=== PATIENT | male | born 1950 | race Caucasian/White ===

== ENCOUNTER 2016-10-14 16:44 | Emergency (ER) | payer OTHER ==
[~2016-10-14] VITALS: Ht 162.6 cm; Wt 52.0 kg
[~2016-10-14 16:44] MED LIST: DILT180C56 PO; HYDR-3535 PO; RIVA20 PO
[2016-10-14 16:45] VITALS: BP 137/66; PULSE 61; RESP 16; TEMP 99.4; O2SAT 98
== END 2016-10-14 17:07 | disposition left against medical advice (07) ==
LOC: NED 16:44
DX: R55 Syncope and collapse (principal); W19.XXXA Unspecified fall, initial encounter; Z53.21 Procedure and treatment not carried out due to patient leaving prior to being seen by health care provider
CPT/HCPCS: 99281

== ENCOUNTER 2016-10-22 11:01 | Inpatient (IN) | payer OTHER, MEDICARE ==
[~2016-10-22] VITALS: Ht 162.6 cm; Wt 49.7 kg
[2016-10-22 11:08] VITALS: BP 140/96; PULSE 64; RESP 18; TEMP 97.8; O2SAT 98
[2016-10-22] MEDS ORDERED: HYDR-3533 PO (11:26)
--- NOTE | 2016-10-22 12:09 | PD ---
HPI Chief Complaint: Alcohol/Drug Intoxication Time Seen by Provider: 12:03 Travel History International Travel<30 days: No Contact w/Intl Traveler<30days: No Traveled to known affect area: No History of Present Illness HPI 66-year-old male with history of alcohol abuse, has been trending cut down on his alcohol use, has had at least 1 week history of tremors. He states he has had previous history of alcohol withdrawal seizures. He denies any chest pains , shortness of breath, palpitations, or any other symptoms. Modifying Factors: None Associated Signs & Symptoms: Tremors Risk Factors: Alcohol abuse, cutting back PFSH Past Medical History Asthma: Yes Blood Disorders: No Heart Rhythm Problems: Yes Cancer: No Cardiovascular Problems: Yes (atrial fib) High Cholesterol: No Chemotherapy: Yes Chest Pain: Yes Congestive Heart Failure: No Cirrhosis: Yes COPD: Yes Diabetes: No Diminished Hearing: No Diverticulitis: Yes Endocrine: No Gastrointestinal Disorders: Yes (FATTY LIVER) Genitourinary: No Hepatitis: Yes (C) Hiatal Hernia: Yes Hypertension: Yes Immune Disorder: No Implanted Vascular Access Dvce: Yes Musculoskeletal: Yes (arthritis legs) Neurologic: No Respiratory: Yes Migraines: Yes Radiation Therapy: No Seizures: Yes Sleep Apnea: Yes Thyroid Disease: No Past Surgical History Body Medical Devices: rt leg bolts and screws micaela. broken jaw Genitourinary Surgery: Yes (HEMMRHIODS) Tonsillectomy: Yes Other Surgery: Yes (hemmhorroidectomy) Social History Alcohol Use: Yes (8 BEERS DAILY) Tobacco Use: Yes (1 PPD) Substance Use: Yes (marijuana daily) Allergies-Medications (Allergen,Severity, Reaction): Coded Allergies: Contrast Media (Verified Allergy, Severe, 10/06/11) Reported Meds & Prescriptions Reported Meds & Active Scripts Active Reported Metoprolol Tartrate 25 Mg Tab 25 Mg PO DAILY Lisinopril 2.5 Mg Tab 2.5 Mg PO DAILY Lortab (Hydrocodone-Acetaminophen) 5-325 Mg Tab 1 Tab PO Q6H PRN Review of Systems Except as stated in HPI: all other systems reviewed are Neg Physical Exam Narrative GENERAL: Well-developed elderly white male patient who appears mildly anxious, tremulous, but is awake and oriented 3. SKIN: Focused skin assessment warm/dry. HEAD: Atraumatic. Normocephalic. EYES: Pupils equal and round. No scleral icterus. No injection or drainage. ENT: No nasal bleeding or discharge. Mucous membranes pink and moist. NECK: Trachea midline. No JVD. CARDIOVASCULAR: Regular rate and rhythm. No murmur appreciated. RESPIRATORY: No accessory muscle use. Clear to auscultation. Breath sounds equal bilaterally. GASTROINTESTINAL: Abdomen soft, non-tender, nondistended. Hepatic and splenic margins not palpable. MUSCULOSKELETAL: No obvious deformities. No clubbing. No cyanosis. No edema. NEUROLOGICAL: Awake and alert, tremulous. No obvious cranial nerve deficits. Motor grossly within normal limits. Normal speech. PSYCHIATRIC: Appropriate mood and affect; insight and judgment normal. Data Data Last Documented VS Vital Signs Date Time Temp Pulse Resp B/P Pulse Ox O2 Delivery O2 Flow Rate FiO2 10/22/16 11:21 73 22 99 Room Air 10/22/16 11:08 97.8 140/96 Orders Electrocardiogram (10/22/16 ) Complete Blood Count With Diff (10/22/16 12:03) Comprehensive Metabolic Panel (10/22/16 12:03) Iv Access Insert/Monitor (10/22/16 12:03) Alcohol (Ethanol) (10/22/16 12:03) Sodium Chlor 0.9% 1000 Ml Inj (Ns 1000 M (10/22/16 12:15) Lorazepam Inj (Ativan Inj) (10/22/16 12:15) Sodium Chlor 0.9% 1000 Ml Inj (Ns 1000 M (10/22/16 13:00) Labs Laboratory Tests Test 10/22/16 12:00 White Blood Count 14.8 TH/MM3 Red Blood Count 3.49 MIL/MM3 Hemoglobin 13.2 GM/DL Hematocrit 37.6 % Mean Corpuscular Volume 107.8 FL Mean Corpuscular Hemoglobin 37.8 PG Mean Corpuscular Hemoglobin 35.0 % Concent Red Cell Distribution Width 14.6 % Platelet Count 131 TH/MM3 Mean Platelet Volume 8.7 FL Neutrophils (%) (Auto) 83.2 % Lymphocytes (%) (Auto) 4.1 % Monocytes (%) (Auto) 12.3 % Eosinophils (%) (Auto) 0.2 % Basophils (%) (Auto) 0.2 % Neutrophils # (Auto) 12.3 TH/MM3 Lymphocytes # (Auto) 0.6 TH/MM3 Monocytes # (Auto) 1.8 TH/MM3 Eosinophils # (Auto) 0.0 TH/MM3 Basophils # (Auto) 0.0 TH/MM3 CBC Comment DIFF FINAL Differential Comment Sodium Level 119 MEQ/L Potassium Level 4.3 MEQ/L Chloride Level 79 MEQ/L Carbon Dioxide Level 22.8 MEQ/L Anion Gap 17 MEQ/L Blood Urea Nitrogen 14 MG/DL Creatinine 1.02 MG/DL Estimat Glomerular Filtration 74 ML/MIN Rate Random Glucose 75 MG/DL Calcium Level 9.3 MG/DL Total Bilirubin 1.0 MG/DL Aspartate Amino Transf 85 U/L (AST/SGOT) Alanine Aminotransferase 48 U/L (ALT/SGPT) Alkaline Phosphatase 66 U/L Total Protein 8.1 GM/DL Albumin 4.2 GM/DL Ethyl Alcohol Level 9 MG/DL MDM Medical Decision Making Medical Screen Exam Complete: Yes Emergency Medical Condition: Yes Medical Record Reviewed: Yes Interpretation(s) EKG shows NSR, no ST elevation or depression, and no arrhythmias. No significant T-wave inversions. Laboratory Tests Test 10/22/16 12:00 White Blood Count 14.8 TH/MM3 (4.0-11.0) Red Blood Count 3.49 MIL/MM3 (4.50-5.90) Hematocrit 37.6 % (39.0-51.0) Mean Corpuscular Volume 107.8 FL (80.0-100.0) Mean Corpuscular Hemoglobin 37.8 PG (27.0-34.0) Platelet Count 131 TH/MM3 (150-450) Neutrophils (%) (Auto) 83.2 % (16.0-70.0) Lymphocytes (%) (Auto) 4.1 % (9.0-44.0) Monocytes (%) (Auto) 12.3 % (0.0-8.0) Neutrophils # (Auto) 12.3 TH/MM3 (1.8-7.7) Lymphocytes # (Auto) 0.6 TH/MM3 (1.0-4.8) Monocytes # (Auto) 1.8 TH/MM3 (0-0.9) Sodium Level 119 MEQ/L (136-145) Chloride Level 79 MEQ/L (98-107) Anion Gap 17 MEQ/L (5-15) Estimat Glomerular Filtration 74 ML/MIN (>89) Rate Aspartate Amino Transf 85 U/L (15-37) (AST/SGOT) Ethyl Alcohol Level 9 MG/DL (0-5) Differential Diagnosis Tremorsalcohol withdrawals versus metabolic issues versus anxiety Narrative Course Patient may have had some underlying alcohol withdrawal and Ativan was given IV in the ER. However, lab work reveals significant hyponatremia. He was given several normal saline boluses in the ER my plan would be to admit the patient for further treatment of his lateral light abnormalities. Case was discussed with Dr. Nguyen for admission. Diagnosis Primary Impression: Hyponatremia Additional Impression: Alcohol withdrawal Admitting Information Admitting Physician Requests: it Jayro Membreno MD Oct 22, 2016 12:08
[2016-10-22] MEDS ORDERED: LORazepam 2 MG/ML VIAL IV PUSH ONE (12:15)
[2016-10-22] MEDS ORDERED: SODIUM CHLOR 0.9% 1000 ML INJ 1,000 ML IV ONE ×2 (12:15→13:00)
[2016-10-22 12:24] LABS: AUTOMATED NEUTROPHIL # 12.3 TH/MM3 (1.8-7.7); BASOPHIL % 0.2 % (0.0-2.0); EOSINOPHIL % 0.2 % (0.0-4.0); HEMATOCRIT 37.6 % (39.0-51.0); HEMO FLAGS DIFF FINAL; LYMPH % 4.1 % (9.0-44.0); LYMPHOCYTE # 0.6 TH/MM3 (1.0-4.8); MEAN CELL VOLUME 107.8 FL (80.0-100.0); MEAN CORPUSCULAR HEMOGLOBIN 37.8 PG (27.0-34.0); MONO % 12.3 % (0.0-8.0); NEUT % 83.2 % (16.0-70.0); PLATELET COUNT 131 TH/MM3 (150-450); RED BLOOD COUNT 3.49 MIL/MM3 (4.50-5.90); RED CELL DISTRIBUTION WIDTH 14.6 % (11.6-17.2); WHITE BLOOD COUNT 14.8 TH/MM3 (4.0-11.0)
[2016-10-22 12:49] LABS: ALKALINE PHOSPHATASE 66 U/L (45-117); ALT (GPT) 48 U/L (12-78); ANION GAP 17 MEQ/L (5-15); AST (GOT) 85 U/L (15-37); BICARBONATE 22.8 MEQ/L (21.0-32.0); BLOOD UREA NITROGEN 14 MG/DL (7-18); CHLORIDE 79 MEQ/L (98-107); GLOMERULAR FILTRATION RATE 74 ML/MIN (>89); POTASSIUM 4.3 MEQ/L (3.5-5.1)
[2016-10-22 12:51] LABS: SODIUM (NA) 119 MEQ/L (136-145)
[2016-10-22] MEDS ORDERED: METO25TA3 PO (13:26)
[2016-10-22] MEDS ORDERED: LISI2.5T3 PO (13:26)
[2016-10-22] MEDS ORDERED: CALCIUM CARBONATE 500 MG CHEWABLE TAB CHEW PRN (13:45)
[2016-10-22] MEDS ORDERED: ACETAMINOPHEN 325 MG TAB PO PRN (13:45)
[2016-10-22] MEDS ORDERED: ALUMINUM/MAGNESIUM/SIMETH 30 ML CUP PO PRN (13:45)
[2016-10-22] MEDS ORDERED: MAGNESIUM HYDROXIDE SUSP 30 ML CUP PO PRN (13:45)
[2016-10-22] MEDS ORDERED: DOCUSATE SODIUM 100 MG CAP PO PRN (13:45)
[2016-10-22] MEDS ORDERED: FLUMAZENIL 0.5 MG/5 ML VIAL IV PUSH PRN (13:45)
[2016-10-22] MEDS ORDERED: LORazepam 1 MG TAB PO PRN (13:45)
[2016-10-22] MEDS ORDERED: ONDANSETRON HCL 4 MG/2 ML VIAL IV PRN (13:45)
[2016-10-22] MEDS ORDERED: LORazepam 2 MG TAB PO PRN (13:45)
[2016-10-22] MEDS ORDERED: PILL SPLITTER OTHER PRN (14:00)
[2016-10-22] MEDS ORDERED: ACETAMINOPHEN/HYDROcodone 325 MG/5 MG TAB PO PRN (14:00)
[2016-10-22] MEDS ORDERED: cloNIDine HCL 0.1 MG TAB PO PRN (14:00)
[2016-10-22 14:24] LABS: BLOOD, URINE NEG (NEG); COMMENT (UR) CULT NOT INDICATED; CULTURE IF INDICATED CULT NOT INDICATED; GLUCOSE,URINE NEG (NEG); KETONE, URINE 40 mg/dL (NEG); MUCUS URINE FEW /lpf (OCC); NITRITE,URINE NEG (NEG); SQUAMOUS EPITHELIAL CELL URINE <1 /hpf (0-5); URINE COLOR LIGHT-YELLOW (YELLW/STRAW)
--- NOTE | 2016-10-22 14:31 | RADRPT ---
EXAM DATE/TIME: 10/22/2016 13:51 [place] COMPARISON: No previous studies available for comparison. INDICATIONS : C/o productive cough/congestion x 2 weeks. Pt states he is also having mid sternal chest pains. Pt sm okes 1ppd. MEDICAL HISTORY : None. SURGICAL HISTORY : Hernia ENCOUNTER: Initial ACUITY: 1 day PAIN SCORE: 3/10 LOCATION: Bilateral chest FINDINGS: The lungs are clear without infiltrate, nodule, or mass. There is no appreciable pleural effusion fo r technique. Heart and mediastinum are unremarkable. CONCLUSION: No acute cardiopulmonary disease. Josh Henderson MD on October 22, 2016 at 14:29 Board Certified Radiologist. This report was verified electronically.
[2016-10-22 15:41] VITALS: BP 139/65; PULSE 81; RESP 23; O2SAT 99
[2016-10-22] MEDS: LORazepam 2 MG/ML VIAL IV PUSH PRN ×5 (15:49→23:36)
[2016-10-22] MEDS: THIAMINE INJ 100 MG in SODIUM CHLORIDE 0.9% INJ 100 ML IV SCH (15:49)
[2016-10-22] MEDS: SODIUM CHLOR 0.9% 1000 ML INJ 1,000 ML IV SCH ×2 (15:50→21:39)
[2016-10-22] MEDS: METOPROLOL TARTRATE 25 MG TAB PO SCH (15:51)
[2016-10-22] MEDS: MAGNESIUM SULFATE 1 GM PREMIX 100 ML IV SCH ×2 (15:51→16:35)
[2016-10-22] MEDS: HALOPERIDOL LACTATE 5 MG/ML AMP IM PRN (16:44)
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
[2016-10-22] MEDS ORDERED: chlordiazePOXIDE 25 MG CAP PO PRN (18:15)
[2016-10-22 21:00] VITALS: BP 135/68; PULSE 82; RESP 30; TEMP 99.8; O2SAT 95
[2016-10-22 21:52] VITALS: PULSE 96
[2016-10-22 22:00] VITALS: BP 142/63; PULSE 88; RESP 28; O2SAT 94
[2016-10-22] MEDS ORDERED: CHLORHEXIDINE GLUCONATE 2 % 1 PACK (2 CLOTHS)(extra cloths) TOPICAL PRN (23:15)
[2016-10-22 23:53] LABS: BICARBONATE 21.9 MEQ/L (21.0-32.0)
[2016-10-23] VITALS (32 sets, daily range): BP systolic 111–201; BP diastolic 50–104; PULSE 64–103; RESP 17–39; TEMP 97.9–99.5; O2SAT 9–100
[2016-10-23] MEDS ORDERED: SODIUM CHLOR 0.45% 1000 ML INJ 1,000 ML IV SCH
[2016-10-23] MEDS: LORazepam 2 MG/ML VIAL IV PUSH PRN ×5 (00:50→19:26)
[2016-10-23] MEDS: CHLORHEXIDINE GLUCONATE 2 % 1 PACK (2 CLOTHS)(taper/protocol) TOPICAL SCH (04:00)
[2016-10-23] MEDS: HALOPERIDOL LACTATE 5 MG/ML AMP IM PRN ×2 (04:36→20:31)
[2016-10-23 04:56] LABS: EOSINOPHIL # 0.1 TH/MM3 (0-0.4); HEMATOCRIT 34.2 % (39.0-51.0); NEUT % 78.5 % (16.0-70.0)
[2016-10-23 04:57] LABS: POTASSIUM 3.9 MEQ/L (3.5-5.1)
[2016-10-23 04:58] LABS: EOSINOPHIL % 0.5 % (0.0-4.0); HEMO FLAGS DIFF FINAL; LYMPH % 7.3 % (9.0-44.0); MEAN CELL VOLUME 107.9 FL (80.0-100.0); MEAN CORPUSCULAR HEMOGLOBIN 36.6 PG (27.0-34.0); MEAN CORPUSCULAR HGB CONC 33.9 % (32.0-36.0); MONO % 11.4 % (0.0-8.0); PLATELET COUNT 102 TH/MM3 (150-450); RED BLOOD COUNT 3.23 MIL/MM3 (4.50-5.90); RED CELL DISTRIBUTION WIDTH 14.1 % (11.6-17.2); WHITE BLOOD COUNT 11.7 TH/MM3 (4.0-11.0)
[2016-10-23 04:59] LABS: AUTOMATED NEUTROPHIL # 9.1 TH/MM3 (1.8-7.7); BASOPHIL # 0.3 TH/MM3 (0-0.2); BASOPHIL % 2.3 % (0.0-2.0); LYMPHOCYTE # 0.9 TH/MM3 (1.0-4.8)
[2016-10-23 05:00] LABS: BICARBONATE 22.4 MEQ/L (21.0-32.0); MAGNESIUM 2.4 MG/DL (1.5-2.5)
[2016-10-23 05:49] LABS: CKMB 5.5 NG/ML (0.5-3.6)
[2016-10-23] MEDS: METOPROLOL TARTRATE 25 MG TAB PO SCH (08:49)
[2016-10-23] MEDS: FOLIC ACID 1 MG TAB PO SCH (08:49)
[2016-10-23] MEDS: chlordiazePOXIDE 25 MG CAP PO SCH ×3 (08:50→19:44)
[2016-10-23] MEDS: LISINOPRIL 5 MG TAB PO SCH (08:50)
[2016-10-23] MEDS: HEPARIN SODIUM - SQ 10,000 UNITS/ML VIAL SQ SCH ×2 (08:50→20:32)
[2016-10-23] MEDS ORDERED: THIAMINE HCL 100 MG TAB PO SCH (09:00)
--- NOTE | 2016-10-23 12:27 | HHI.PR ---
Subjective Remarks The patient was lethargic. He was able to answer some questions but was confused about most topics. He was not sure he was in the hospital. He said that alcoholism runs in his family. He had no acute complaints. Nursing at the bedside. Objective Vitals Vital Signs Date Time Temp Pulse Resp B/P Pulse Ox O2 Delivery O2 Flow Rate FiO2 10/23/16 11:00 95 24 140/91 96 10/23/16 10:00 88 10/23/16 10:00 92 25 154/75 95 10/23/16 09:00 92 25 154/75 95 10/23/16 08:00 87 17 168/78 96 10/23/16 08:00 87 10/23/16 07:00 98.4 93 27 158/77 96 10/23/16 06:00 76 10/23/16 06:00 77 28 135/60 96 10/23/16 05:00 76 30 142/75 95 10/23/16 04:00 98.7 68 23 117/65 94 10/23/16 04:00 90 10/23/16 03:00 77 31 139/53 94 10/23/16 02:00 72 26 113/50 94 10/23/16 02:00 74 10/23/16 01:00 72 24 111/60 94 10/23/16 00:00 99.5 86 34 132/51 94 10/23/16 00:00 81 10/22/16 22:00 88 28 142/63 94 10/22/16 21:52 96 10/22/16 21:00 99.8 82 30 135/68 95 10/22/16 15:41 81 23 139/65 99 Room Air I/O 10/22/16 10/22/16 10/22/16 10/23/16 10/23/16 10/23/16 07:00 15:00 23:00 07:00 15:00 23:00 Intake Total 560 ml Output Total 750 ml Balance -190 ml Intake Oral 0 ml IV Total 560 ml Output Urine Total 750 ml # Bowel Movements 0 Result Diagram: 10/23/16 0435 10/23/16 0435 Imaging Last Impressions Chest X-Ray 10/22/16 0000 Signed Impressions: Service Date/Time: Saturday, October 22, 2016 13:51 - CONCLUSION: No acute cardiopulmonary disease. KYanelis Henderson MD Objective Remarks GENERAL: Alert, not in distress. SKIN: No rashes, ecchymoses or lesions. Warm and dry. HEAD: Atraumatic. Normocephalic. No temporal or scalp tenderness. EYES: Pupils equal round and reactive. Bilateral drainage noted. ENT: Nose without bleeding, purulent drainage or septal hematoma. Airway patent. NECK: Trachea midline. No lymphadenopathy. Supple, nontender, no meningeal signs. CARDIOVASCULAR: Regular rate and rhythm without murmurs, gallops, or rubs. No JVD. RESPIRATORY: Moderate air entry. No wheezing, crackles noted. GASTROINTESTINAL: Abdomen soft, non-tender, nondistended. No guarding. MUSCULOSKELETAL: Extremities without clubbing, cyanosis, or edema. NEUROLOGICAL: Awake and alert. No focal neurological deficits. Confused. Medications and IVs Current Medications Medications (Trade) Dose Ordered Sig/[place]elle Route Start Time Stop Time Status Last Admin (Folate) 1 mg DAILY PO 10/23/16 09:00 10/28/16 08:59 10/23/16 08:49 (Romazicon Inj) 0.2 mg Q1M PRN IV PUSH 10/22/16 13:45 (Ativan) 1 mg Q4H PRN PO 10/22/16 13:45 (Ativan Inj) 1 mg Q4H PRN IV PUSH 10/22/16 13:45 10/22/16 15:49 (Ativan) 2 mg Q2H PRN PO 10/22/16 13:45 (Ativan Inj) 2 mg Q2H PRN IV PUSH 10/22/16 13:45 (Ativan Inj) 2 mg Q1H PRN IV PUSH 10/22/16 13:45 10/22/16 22:29 (Ativan Inj) 2 mg Q15M PRN IV PUSH 10/22/16 13:45 10/23/16 05:53 (Haldol Inj) 2 mg Q15M PRN IM 10/22/16 13:45 10/23/16 04:36 (Tylenol) 650 mg Q4H PRN PO 10/22/16 13:45 (Zofran Inj) 4 mg Q6H PRN IV 10/22/16 13:45 (Colace) 100 mg BID PRN PO 10/22/16 13:45 (Milk Of Magnesia Liq) 30 ml DAILY PRN PO 10/22/16 13:45 (Mag-Al Plus Susp Liq) 30 ml Q6H PRN PO 10/22/16 13:45 (Tums Chew) 1,000 mg TID PRN CHEW 10/22/16 13:45 (Lopressor) 25 mg DAILY PO 10/22/16 14:00 10/23/16 08:49 (Prinivil) 2.5 mg DAILY PO 10/23/16 09:00 10/23/16 08:50 (Vasotec Inj) 1.25 mg Q6H PRN IV 10/22/16 14:00 (Catapres) 0.1 mg Q6H PRN PO 10/22/16 14:00 (Pill Splitter) 1 ea UNSCH PRN OTHER 10/22/16 14:00 Thiamine HCl 100 mg 100 mg DAILY PO 10/25/16 09:00 (Thiamine Inj/NS Inj) 101 ml @ 101 mls/hr Q24H IV 10/22/16 15:00 10/24/16 15:59 10/22/16 15:49 ([place] 5-325 Mg) 1 tab Q6H PRN PO 10/22/16 14:45 Miscellaneous Information Patient in critical care unit? Ass... [id number] .XX 10/22/16 23:15 10/22/16 23:15 (Chlorhexidine 2% Cloth) 3 pack DAILY@04 TOPICAL 10/23/16 04:00 10/27/16 04:01 10/23/16 04:00 (Chlorhexidine 2% Cloth) 3 pack UNSCH PRN TOPICAL 10/22/16 23:15 10/27/16 23:03 (Librium) 50 mg Q6H PO 10/23/16 08:00 10/26/16 07:59 10/23/16 08:50 Heparin Sodium (Porcine) 5000 units 5,000 units Q12HR SQ 10/23/16 09:00 10/23/16 08:50 (D5W 1000 ml Inj) 1,000 ml @ 125 mls/hr Q8H IV 10/23/16 12:15 UNV A/P Problem List: (1) Alcohol withdrawal delirium ICD Code: F10.231 Status: Acute (2) Hyponatremia ICD Code: E87.1 Status: Acute (3) CAD (coronary artery disease) ICD Code: I25.10 Status: Acute Assessment and Plan Alcohol withdrawal Mr. To is a 66 year old male with a history of snf alcohol abuse who presented to the ED 3-4 days after he stopping alcohol abuse with nausea vomiting and mild fever. Patient had disorganized thoughts as well as weakness which prompted his ex-girlfriend to bring him to the hospital. Later in the day on 10/22/2016, patient became more agitated and started hallucinating. Patient was given a dose of Haloperidol at the [facility]. - Continue CIWA protocol. - Thiamine IV X 3 days then PO; Folic acid 1mg Qday. - Librium 50mg Q8hrs X 3 days. Hold for sedation. - alcohol cessation instruction. Severe Hyponatremia Na 119 on admission. Patient was started on NS and sodium level is currently 136. - change fluids to D5W and follow BMP closely. - neuro checks. Hypertension HTN exacerbated by withdrawal. - treatment as above. - continue metoprolol and lisinopril. CAD S/p 2 stents two years ago. - continue home meds. PPx: Heparin SQ. Discharge Planning Awaiting clinical improvement. Himanshu Crowell DO Oct 23, 2016 12:27
[2016-10-23] MEDS: DEXTROSE 5% IN WATE 1000ML INJ 1,000 ML IV SCH ×2 (13:51→18:57)
--- NOTE | 2016-10-23 14:11 | EKG ---
Date Performed: 10/22/2016 Time Performed: 11:22:34 PTAGE: 66 years EKG: Sinus rhythm WITH SHORT WA INTERVAL BORDERLINE ECG INTERPRETATION BASED ON A DEFAULT AGE OF 40 YEARS Compared to prior tracing no significant change PREVIOUS TRACING : 04/21/2014 07.32 DOCTOR: Prabhu Cerda Interpretating Date/Time 10/23/2016 14:06:06
[2016-10-23 15:43] LABS: POTASSIUM 3.2 MEQ/L (3.5-5.1)
[2016-10-23 15:47] LABS: BICARBONATE 20.7 MEQ/L (21.0-32.0)
[2016-10-23] MEDS: THIAMINE INJ 100 MG in SODIUM CHLORIDE 0.9% INJ 100 ML IV SCH (16:56)
[2016-10-23 20:11] LABS: POTASSIUM 3.4 MEQ/L (3.5-5.1)
[2016-10-23] MEDS: ENALAPRILAT 1.25 MG/ML VIAL IV PRN (20:32)
[2016-10-23] MEDS ORDERED: SODIUM CHLOR 0.9% 1000 ML INJ 1,000 ML IV SCH (21:45)
[2016-10-23] MEDS ORDERED: POTASSIUM CHLOR 20 MEQ PREMIX 100 ML IV ONE (22:00)
[2016-10-24] VITALS (30 sets, daily range): BP systolic 102–199; BP diastolic 50–111; PULSE 62–94; RESP 22–43; TEMP 97.8–99; O2SAT 96–100
[2016-10-24] MEDS: LORazepam 2 MG/ML VIAL IV PUSH PRN ×4 (01:00→19:13)
[2016-10-24] MEDS: chlordiazePOXIDE 25 MG CAP PO SCH ×2 (01:01→09:30)
[2016-10-24] MEDS: CHLORHEXIDINE GLUCONATE 2 % 1 PACK (2 CLOTHS)(taper/protocol) TOPICAL SCH (04:00)
[2016-10-24 05:21] LABS: AUTOMATED NEUTROPHIL # 6.4 TH/MM3 (1.8-7.7); BASOPHIL % 0.3 % (0.0-2.0); EOSINOPHIL # 0.1 TH/MM3 (0-0.4); EOSINOPHIL % 1.5 % (0.0-4.0); HEMATOCRIT 35.8 % (39.0-51.0); HEMO FLAGS DIFF FINAL; LYMPH % 9.8 % (9.0-44.0); LYMPHOCYTE # 0.8 TH/MM3 (1.0-4.8); MEAN CORPUSCULAR HEMOGLOBIN 36.1 PG (27.0-34.0); MEAN CORPUSCULAR HGB CONC 33.1 % (32.0-36.0); MONO % 12.5 % (0.0-8.0); NEUT % 75.9 % (16.0-70.0); PLATELET COUNT 109 TH/MM3 (150-450); RED BLOOD COUNT 3.28 MIL/MM3 (4.50-5.90); RED CELL DISTRIBUTION WIDTH 13.9 % (11.6-17.2); WHITE BLOOD COUNT 8.3 TH/MM3 (4.0-11.0)
[2016-10-24 05:35] LABS: BICARBONATE 24.5 MEQ/L (21.0-32.0)
[2016-10-24] MEDS: ENALAPRILAT 1.25 MG/ML VIAL IV PRN (05:44)
[2016-10-24 05:57] LABS: POTASSIUM 2.9 MEQ/L (3.5-5.1)
[2016-10-24] MEDS ORDERED: POTASSIUM CHLORIDE 20 MEQ CONTROLLED RELEASE TAB PO ONE (06:15)
[2016-10-24] MEDS: POTASSIUM CHLOR 20 MEQ PREMIX 100 ML IV SCH ×2 (06:30→09:00)
[2016-10-24] MEDS: LISINOPRIL 5 MG TAB PO SCH (09:28)
[2016-10-24] MEDS: FOLIC ACID 1 MG TAB PO SCH (09:28)
[2016-10-24] MEDS: METOPROLOL TARTRATE 25 MG TAB PO SCH (09:28)
[2016-10-24] MEDS: HEPARIN SODIUM - SQ 10,000 UNITS/ML VIAL SQ SCH ×2 (09:30→20:37)
--- NOTE | 2016-10-24 13:26 | HHI.PR ---
Subjective Remarks The pt was lethargic. His nurse said he received 2 mg of IV Ativan. No acute concerns at this time. He was able to eat breakfast. Has been agitated in the morning. Objective Vitals Vital Signs Date Time Temp Pulse Resp B/P Pulse Ox O2 Delivery O2 Flow Rate FiO2 10/24/16 13:00 89 25 159/80 98 10/24/16 12:00 78 10/24/16 12:00 99.0 80 42 135/65 100 10/24/16 11:00 68 37 116/82 100 10/24/16 10:00 78 32 160/76 100 10/24/16 10:00 88 10/24/16 09:00 98.3 82 151/79 10/24/16 08:00 90 39 153/68 98 10/24/16 08:00 90 10/24/16 07:00 89 30 161/84 99 10/24/16 06:16 88 33 191/92 100 10/24/16 06:00 88 10/24/16 05:20 90 36 199/95 100 10/24/16 04:18 62 27 119/63 100 10/24/16 04:00 92 10/24/16 03:18 64 25 102/50 98 10/24/16 02:18 66 27 109/54 97 10/24/16 02:00 93 10/24/16 01:00 80 34 141/68 100 10/24/16 00:26 76 34 141/68 100 10/24/16 00:18 97.8 80 35 168/111 100 10/24/16 00:00 86 10/23/16 23:18 64 28 145/67 100 10/23/16 22:22 100 Nasal Cannula 2.00 10/23/16 22:19 80 36 149/68 100 10/23/16 22:18 83 34 194/83 100 10/23/16 22:00 83 10/23/16 21:18 74 36 135/75 83 10/23/16 20:33 90 34 174/86 10/23/16 20:30 80 34 200/85 10/23/16 20:27 82 39 201/104 10/23/16 20:18 97.9 84 30 180/80 10/23/16 20:00 83 10/23/16 19:28 84 36 171/64 10/23/16 19:17 82 39 172/74 10/23/16 18:00 69 10/23/16 18:00 78 27 157/78 96 10/23/16 17:00 75 28 154/73 96 10/23/16 16:00 80 29 148/79 96 10/23/16 16:00 82 10/23/16 16:00 98.3 91 24 168/82 95 10/23/16 15:00 103 27 161/81 96 10/23/16 14:00 95 28 154/87 95 10/23/16 14:00 95 I/O 10/23/16 10/23/16 10/23/16 10/24/16 10/24/16 10/24/16 07:00 15:00 23:00 07:00 15:00 23:00 Intake Total 560 ml 770 ml 590 ml 0 ml Output Total 750 ml 1100 ml 350 ml 800 ml Balance -190 ml -330 ml 240 ml -800 ml Intake Oral 0 ml 20 ml IV Total 560 ml 750 ml 590 ml 0 ml Output Urine Total 750 ml 1100 ml 350 ml 800 ml # Bowel Movements 0 0 Result Diagram: 10/24/16 0505 10/24/16 1200 Imaging Last Impressions Chest X-Ray 10/22/16 0000 Signed Impressions: Service Date/Time: Saturday, October 22, 2016 13:51 - CONCLUSION: No acute cardiopulmonary disease. Josh Henderson MD Objective Remarks GENERAL: Lethargic. SKIN: No rashes, ecchymoses or lesions. Warm and dry. HEAD: Atraumatic. Normocephalic. No temporal or scalp tenderness. EYES: Pupils equal round and reactive. Bilateral drainage noted. ENT: Nose without bleeding, purulent drainage or septal hematoma. Airway patent. NECK: Trachea midline. No lymphadenopathy. Supple, nontender, no meningeal signs. CARDIOVASCULAR: Regular rate and rhythm without murmurs, gallops, or rubs. No JVD. RESPIRATORY: Moderate rhonchi, mild wheezing. GASTROINTESTINAL: Abdomen soft, non-tender, nondistended. No guarding. MUSCULOSKELETAL: Extremities without clubbing, cyanosis, or edema. NEUROLOGICAL: Lethargic. No focal neurological deficits. Confused. Medications and IVs Current Medications Medications (Trade) Dose Ordered Sig/Lavelle Route Start Time Stop Time Status Last Admin (Folate) 1 mg DAILY PO 10/23/16 09:00 10/28/16 08:59 10/24/16 09:28 (Romazicon Inj) 0.2 mg Q1M PRN IV PUSH 10/22/16 13:45 (Ativan) 1 mg Q4H PRN PO 10/22/16 13:45 (Ativan Inj) 1 mg Q4H PRN IV PUSH 10/22/16 13:45 10/22/16 15:49 (Ativan) 2 mg Q2H PRN PO 10/22/16 13:45 (Ativan Inj) 2 mg Q2H PRN IV PUSH 10/22/16 13:45 10/24/16 09:30 (Ativan Inj) 2 mg Q1H PRN IV PUSH 10/22/16 13:45 10/24/16 01:00 (Ativan Inj) 2 mg Q15M PRN IV PUSH 10/22/16 13:45 10/23/16 05:53 (Haldol Inj) 2 mg Q15M PRN IM 10/22/16 13:45 10/23/16 20:31 (Tylenol) 650 mg Q4H PRN PO 10/22/16 13:45 (Zofran Inj) 4 mg Q6H PRN IV 10/22/16 13:45 (Colace) 100 mg BID PRN PO 10/22/16 13:45 (Milk Of Magnesia Liq) 30 ml DAILY PRN PO 10/22/16 13:45 (Mag-Al Plus Susp Liq) 30 ml Q6H PRN PO 10/22/16 13:45 (Tums Chew) 1,000 mg TID PRN CHEW 10/22/16 13:45 (Lopressor) 25 mg DAILY PO 10/22/16 14:00 10/24/16 09:28 (Prinivil) 2.5 mg DAILY PO 10/23/16 09:00 10/24/16 09:28 (Vasotec Inj) 1.25 mg Q6H PRN IV 10/22/16 14:00 10/24/16 05:44 (Catapres) 0.1 mg Q6H PRN PO 10/22/16 14:00 (Pill Splitter) 1 ea UNSCH PRN OTHER 10/22/16 14:00 Thiamine HCl 100 mg 100 mg DAILY PO 10/25/16 09:00 (Thiamine Inj/NS Inj) 101 ml @ 101 mls/hr Q24H IV 10/22/16 15:00 10/24/16 15:59 10/23/16 16:56 ([place] 5-325 Mg) 1 tab Q6H PRN PO 10/22/16 14:45 Miscellaneous Information Patient in critical care unit? Ass... Q361D .XX 10/22/16 23:15 10/22/16 23:15 (Chlorhexidine 2% Cloth) 3 pack DAILY@04 TOPICAL 10/23/16 04:00 10/27/16 04:01 10/24/16 04:00 (Chlorhexidine 2% Cloth) 3 pack UNSCH PRN TOPICAL 10/22/16 23:15 10/27/16 23:03 (Librium) 50 mg Q6H PO 10/23/16 08:00 10/26/16 07:59 10/24/16 09:30 (Heparin Inj) 5,000 units Q12HR SQ 10/23/16 09:00 10/24/16 09:30 A/P Problem List: (1) Alcohol withdrawal delirium ICD Code: F10.231 Status: Acute (2) Hyponatremia ICD Code: E87.1 Status: Acute (3) CAD (coronary artery disease) ICD Code: I25.10 Status: Acute Assessment and Plan Alcohol withdrawal Mr. 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 Patient had disorganized thoughts as well as weakness which prompted his ex-girlfriend to bring him to the hospital. Later in the day on 10/22/2016, patient became more agitated and started hallucinating. Patient was given a dose of Haloperidol at the main hospital. - Continue CIWA protocol. - Thiamine IV X 3 days then PO; Folic acid 1mg Qday. - alcohol cessation instruction. Acute metabolic encephalopathy Likely s/t benzos on top of alcohol withdrawal. - decrease benzos if possible. - start Seroquel for agitation. Haldol if needed. QTc is not elevated. - PT. - diet per ST. Severe Hyponatremia Na 119 on admission. Patient was started on NS and sodium level increased to 136. - neuro checks. - follow BMP. - consider repeat head imaging if mental status does not improve. Hypertension HTN exacerbated by withdrawal. - treatment as above. - continue metoprolol and lisinopril. CAD S/p 2 stents two years ago. - continue home meds. PPx: Heparin SQ. Discharge Planning Awaiting clinical improvement. Himanshu Crowell DO Oct 24, 2016 13:26
[2016-10-24 13:30] LABS: POTASSIUM 4.2 MEQ/L (3.5-5.1)
[2016-10-24 13:35] LABS: BICARBONATE 19.7 MEQ/L (21.0-32.0)
[2016-10-24] MEDS ORDERED: RESP: ALBUTEROL 2.5 MG/IPRATROPIUM 0.5 MG NEB (PRN) NEB (14:15)
[2016-10-24] MEDS ORDERED: DEXTROSE 5% IN WATE 1000ML INJ 1,000 ML IV SCH (14:15)
[2016-10-24] MEDS: THIAMINE INJ 100 MG in SODIUM CHLORIDE 0.9% INJ 100 ML IV SCH (15:34)
[2016-10-24] MEDS: QUEtiapine FUMARATE 25 MG TAB PO SCH (20:37)
[2016-10-25] VITALS (31 sets, daily range): BP systolic 91–183; BP diastolic 59–96; PULSE 68–114; RESP 26–54; TEMP 97.9–99; O2SAT 94–100
[2016-10-25] MEDS: LORazepam 2 MG/ML VIAL IV PUSH PRN (01:53)
[2016-10-25] MEDS: CHLORHEXIDINE GLUCONATE 2 % 1 PACK (2 CLOTHS)(taper/protocol) TOPICAL SCH (04:00)
[2016-10-25 06:07] LABS: HEMATOCRIT 34.6 % (39.0-51.0); MEAN CELL VOLUME 108.6 FL (80.0-100.0); MEAN CORPUSCULAR HEMOGLOBIN 37.3 PG (27.0-34.0); MEAN CORPUSCULAR HGB CONC 34.3 % (32.0-36.0); PLATELET COUNT 122 TH/MM3 (150-450); RED BLOOD COUNT 3.18 MIL/MM3 (4.50-5.90); RED CELL DISTRIBUTION WIDTH 13.8 % (11.6-17.2); REVIEW FLAG FINAL; WHITE BLOOD COUNT 9.7 TH/MM3 (4.0-11.0)
[2016-10-25 06:13] LABS: POTASSIUM 3.5 MEQ/L (3.5-5.1)
[2016-10-25 06:16] LABS: BICARBONATE 21.9 MEQ/L (21.0-32.0)
[2016-10-25 06:22] LABS: MAGNESIUM 1.5 MG/DL (1.5-2.5)
[2016-10-25] MEDS: FOLIC ACID 1 MG TAB PO SCH (09:00)
[2016-10-25] MEDS: METOPROLOL TARTRATE 25 MG TAB PO SCH (09:00)
[2016-10-25] MEDS: QUEtiapine FUMARATE 25 MG TAB PO SCH (09:00)
[2016-10-25] MEDS: LISINOPRIL 5 MG TAB PO SCH (09:00)
[2016-10-25] MEDS ORDERED: THIAMINE HCL 100 MG TAB PO SCH (09:00)
--- NOTE | 2016-10-25 11:12 | HHI.PR ---
Subjective Remarks The patient was lethargic. He was unable to work with physical therapy, who was at the bedside. He was mumbling certain words but not making much sense. He was responding to commands though. Discussed with nursing. Objective Vitals Vital Signs Date Time Temp Pulse Resp B/P Pulse Ox O2 Delivery O2 Flow Rate FiO2 10/25/16 08:51 96 Nasal Cannula 2.00 10/25/16 07:36 71 37 180/96 97 10/25/16 06:00 96 45 169/84 97 10/25/16 06:00 96 10/25/16 05:00 96 51 149/75 96 10/25/16 04:00 98.8 104 39 158/69 96 10/25/16 04:00 104 10/25/16 03:00 100 10/25/16 03:00 100 54 148/78 96 10/25/16 02:00 98 10/25/16 02:00 98 32 159/79 97 10/25/16 01:00 88 10/25/16 01:00 88 43 147/65 97 10/25/16 00:00 98.1 94 34 158/84 96 10/25/16 00:00 94 10/24/16 23:00 94 10/24/16 23:00 94 43 158/80 100 10/24/16 22:00 92 38 156/77 100 10/24/16 22:00 91 10/24/16 21:00 92 42 174/82 100 10/24/16 20:26 96 Nasal Cannula 2.00 10/24/16 20:00 86 10/24/16 20:00 78 37 126/71 97 10/24/16 19:00 98.0 84 41 149/83 98 10/24/16 18:00 88 10/24/16 18:00 85 25 155/79 97 10/24/16 17:00 78 23 160/84 98 10/24/16 16:00 86 10/24/16 16:00 86 22 140/70 96 10/24/16 15:00 80 26 160/91 97 10/24/16 14:00 80 39 160/84 100 10/24/16 14:00 80 10/24/16 13:00 89 25 159/80 98 10/24/16 12:00 78 10/24/16 12:00 99.0 80 42 135/65 100 I/O 10/24/16 10/24/16 10/24/16 10/25/16 10/25/16 10/25/16 07:00 15:00 23:00 07:00 15:00 23:00 Intake Total 0 ml 200 ml 760 ml 560 ml Output Total 800 ml 550 ml 352 ml 350 ml Balance -800 ml -350 ml 408 ml 210 ml IV Total 0 ml 200 ml 760 ml 560 ml Output Urine Total 800 ml 550 ml 352 ml 350 ml # Bowel Movements 1 1 Result Diagram: 10/25/16 0545 10/25/16 0545 Imaging Last Impressions Chest X-Ray 10/22/16 0000 Signed Impressions: Service Date/Time: Saturday, October 22, 2016 13:51 - CONCLUSION: No acute cardiopulmonary disease. Josh Henderson MD Objective Remarks GENERAL: Lethargic. SKIN: No rashes, ecchymoses or lesions. Warm and dry. HEAD: Atraumatic. Normocephalic. No temporal or scalp tenderness. EYES: Pupils equal round and reactive. Bilateral drainage noted. ENT: Nose without bleeding, purulent drainage or septal hematoma. Airway patent. NECK: Trachea midline. No lymphadenopathy. Supple, nontender, no meningeal signs. CARDIOVASCULAR: Regular rate and rhythm without murmurs, gallops, or rubs. No JVD. RESPIRATORY: Moderate rhonchi, mild wheezing, tachypnea noted. GASTROINTESTINAL: Abdomen soft, non-tender, nondistended. No guarding. MUSCULOSKELETAL: Extremities without clubbing, cyanosis, or edema. NEUROLOGICAL: Lethargic. No focal neurological deficits. Confused. PSYCH: Withdrawn. Medications and IVs Current Medications Medications (Trade) Dose Ordered Sig/Lavelle Route Start Time Stop Time Status Last Admin (Folate) 1 mg DAILY PO 10/23/16 09:00 10/28/16 08:59 10/24/16 09:28 (Romazicon Inj) 0.2 mg Q1M PRN IV PUSH 10/22/16 13:45 (Ativan) 1 mg Q4H PRN PO 10/22/16 13:45 (Ativan) 2 mg Q2H PRN PO 10/22/16 13:45 (Haldol Inj) 2 mg Q15M PRN IM 10/22/16 13:45 10/23/16 20:31 (Tylenol) 650 mg Q4H PRN PO 10/22/16 13:45 (Zofran Inj) 4 mg Q6H PRN IV 10/22/16 13:45 (Colace) 100 mg BID PRN PO 10/22/16 13:45 (Milk Of Magnesia Liq) 30 ml DAILY PRN PO 10/22/16 13:45 (Mag-Al Plus Susp Liq) 30 ml Q6H PRN PO 10/22/16 13:45 (Tums Chew) 1,000 mg TID PRN CHEW 10/22/16 13:45 (Lopressor) 25 mg DAILY PO 10/22/16 14:00 10/24/16 09:28 (Prinivil) 2.5 mg DAILY PO 10/23/16 09:00 10/24/16 09:28 (Vasotec Inj) 1.25 mg Q6H PRN IV 10/22/16 14:00 10/24/16 05:44 (Catapres) 0.1 mg Q6H PRN PO 10/22/16 14:00 (Pill Splitter) 1 ea UNSCH PRN OTHER 10/22/16 14:00 (Vitamin B1) 100 mg DAILY PO 10/25/16 09:00 ([place] 5-325 Mg) 1 tab Q6H PRN PO 10/22/16 14:45 Miscellaneous Information Patient in critical care unit? Ass... Q361D .XX 10/22/16 23:15 10/22/16 23:15 (Chlorhexidine 2% Cloth) 3 pack DAILY@04 TOPICAL 10/23/16 04:00 10/27/16 04:01 10/25/16 04:00 (Chlorhexidine 2% Cloth) 3 pack UNSCH PRN TOPICAL 10/22/16 23:15 10/27/16 23:03 (Heparin Inj) 5,000 units Q12HR SQ 10/23/16 09:00 10/24/16 20:37 (SEROquel) 25 mg BID PO 10/24/16 21:00 10/24/16 20:37 A/P Problem List: (1) Alcohol withdrawal delirium ICD Code: F10.231 Status: Acute (2) Hyponatremia ICD Code: E87.1 Status: Acute (3) CAD (coronary artery disease) ICD Code: I25.10 Status: Acute Assessment and Plan Alcohol withdrawal Mr. To is a 66 year old male with a history of fpc alcohol abuse who presented to the ED 3-4 days after he stopping alcohol abuse with nausea vomiting and mild fever. Patient had disorganized thoughts as well as weakness which prompted his ex-girlfriend to bring him to the hospital. Later in the day on 10/22/2016, patient became more agitated and started hallucinating. Patient was given a dose of Haloperidol at the main hospital. - Ativan as needed.. - Thiamine IV X 3 days then PO; Folic acid 1mg Qday. - alcohol cessation instruction. Acute metabolic encephalopathy Likely s/t benzos on top of alcohol withdrawal. - withhold sedating meds. - Ativan as needed for seizures. - Haldol if needed. QTc is not elevated. - PT. - diet per ST. - MRI of the brain is pending. - neuro checks. Respiratory distress The pt has tachypnea. Likely respiratory compensation for metabolic acidosis. - Check ABG and lactic acid level. - Oxygen and nebs as needed. - consult plant operator control room operator if needed. Severe Hyponatremia Na 119 on admission. Patient was started on NS and sodium level increased to 136. - neuro checks. - follow BMP. - consider repeat head imaging if mental status does not improve. Hypertension HTN exacerbated by withdrawal. - treatment as above. - continue metoprolol and lisinopril. CAD S/p 2 stents two years ago. - continue home meds. PPx: Heparin SQ. Discharge Planning Awaiting clinical improvement. Himanshu Crowell DO Oct 25, 2016 11:12
[2016-10-25] MEDS ORDERED: LORazepam 2 MG/ML VIAL IV PUSH PRN (11:30)
[2016-10-25 11:46] LABS: BLOOD GAS BASE EXCESS -1.5 mmol/L (-2-2); BLOOD GAS CARBOXYHEMOGLOBIN 1.6 % (0-4); BLOOD GAS HCO3 22 mmol/L (22-26); BLOOD GAS METHEMOGLOBIN 0.8 % (0-2); BLOOD GAS O2 HGB SATURATION 95 % (90-100); BLOOD GAS OXYGEN CONTENT 16.3 Vol % (12.0-20.0); BLOOD GAS PCO2 29 mmHg (38-42); BLOOD GAS PO2 78 mmHg (61-120); BLOOD GAS TOTAL HGB 12.2 G/DL (12.0-16.0); CRITICAL VALUE NO; LITER FLOW 1 L/M; OXYGEN DEVICE NASAL CANNULA; TEMP CORR TO 98.6
[2016-10-25 11:47] LABS: DRAW SITE LT RADIAL; NUMBER OF ARTERIAL PUNCTURES 1; STAT YES; ULNAR PULSE PRESENT
--- NOTE | 2016-10-25 11:48 | RADHPO ---
EXAM DATE/TIME: 10/25/2016 11:36 [facility] COMPARISON: CHEST SINGLE AP, October 22, 2016, 13:51. INDICATIONS : Dyspnea MEDICAL HISTORY : None. SURGICAL HISTORY : None. ENCOUNTER: Subsequent ACUITY: 4 - 6 days PAIN SCORE: Non-responsive. LOCATION: Bilateral chest FINDINGS: A single view of the chest demonstrates the lungs to be symmetrically aerated without evidence of mas s, infiltrate or effusion. The cardiomediastinal contours are unremarkable. Osseous structures are intact. CONCLUSION: Normal examination. Valdo Bell MD on October 25, 2016 at 11:46 Board Certified Radiologist. This report was verified electronically.
[2016-10-25] MEDS: HEPARIN SODIUM - SQ 10,000 UNITS/ML VIAL SQ SCH ×2 (12:14→19:36)
[2016-10-25] MEDS: MAGNESIUM SULFATE 1 GM PREMIX 100 ML IV SCH ×2 (12:14→13:25)
[2016-10-25] MEDS: DEXT 5%-NACL 0.45% 1000 ML INJ 1,000 ML IV SCH ×2 (13:25→20:02)
--- NOTE | 2016-10-25 14:15 | RADHPO ---
EXAM DATE/TIME: 10/25/2016 13:36 [facility] COMPARISON: CT BRAIN W/O CONTRAST, February 23, 2011, 9:09. INDICATIONS : Altered mental status. RADIATION DOSE: 58.25 CTDIvol (mGy) MEDICAL HISTORY : Seizures. Hypertension. Hepatitis C. SURGICAL HISTORY : Tonsillectomy. ENCOUNTER: Initial ACUITY: 1 day PAIN SCALE: Non-responsive LOCATION: Bilateral head TECHNIQUE: Multiple contiguous axial images were obtained of the head. Using automated exposure control and adj ustment of the mA and/or kV according to patient size, radiation dose was kept as low as reasonably a chievable to obtain optimal diagnostic quality images. FINDINGS: There is mild atrophy. No hemorrhage, infarct, or mass. No fractures. CONCLUSION: No significant change has occurred. Valdo Bell MD on October 25, 2016 at 14:13 Board Certified Radiologist. This report was verified electronically.
[2016-10-25] MEDS: ENALAPRILAT 1.25 MG/ML VIAL IV PRN (15:15)
[2016-10-25] MEDS ORDERED: hydrALAZINE HCL 20 MG/ML VIAL IV PUSH PRN (16:30)
--- NOTE | 2016-10-25 17:23 | RADHPO ---
EXAM DATE/TIME: 10/25/2016 16:11 [facility] COMPARISON: CHEST SINGLE AP, October 25, 2016, 11:36. INDICATIONS : Short of breath for 1 day. Current smoker. DOSE: 8.1 mCi Tc99m MAA IV 0.5 mCi Tc99m DTPA aerosol MEDICAL HISTORY : Hepatitis C. Chronic obstructive pulmonary disease. Asthma and atrail fibrillation. SURGICAL HISTORY : Inguinal hernia repair. Right leg surgery. ENCOUNTER: Initial ACUITY: 1 day PAIN SCALE: 1/10 LOCATION: Bilateral chest TECHNIQUE: Following five minutes of tidal breathing of DTPA aerosol, planar images of the lungs were performed in eight projections. The patient was then injected with MAA, and eight-view perfusion scan was perf ormed. FINDINGS: There is apparent diminished perfusion to both lower lobes on the lateral projections, however not pa rticularly segmental possibly representing artifact and there are slight degree of peripheral ventila tory defects. CONCLUSION: Possible artifactual appearance of diminished perfusion to both lower lobes and may consider CT angio graphy to further characterize. Josh Henderson MD on October 25, 2016 at 17:19 Board Certified Radiologist. This report was verified electronically.
[2016-10-25] MEDS: DEXMEDETOMIDINE INJ 200 MCG in SODIUM CHLORIDE 0.9% INJ 50 ML IV SCH ×2 (20:20→23:11)
[2016-10-25 22:06] LABS: BLOOD GAS BASE EXCESS 0.3 mmol/L (-2-2); BLOOD GAS CARBOXYHEMOGLOBIN 1.4 % (0-4); BLOOD GAS HCO3 24 mmol/L (22-26); BLOOD GAS METHEMOGLOBIN 0.9 % (0-2); BLOOD GAS O2 HGB SATURATION 94 % (90-100); BLOOD GAS PCO2 36 mmHg (38-42); BLOOD GAS PO2 75 mmHg (61-120); BLOOD GAS TOTAL HGB 12.1 G/DL (12.0-16.0); TEMP CORR TO 98.6
[2016-10-25 22:07] LABS: CRITICAL VALUE NO; DRAW SITE RT RADIAL; LITER FLOW 1 L/M; NUMBER OF ARTERIAL PUNCTURES 1; OXYGEN DEVICE NASAL CANNULA; STAT YES; ULNAR PULSE Y
[2016-10-26] VITALS (34 sets, daily range): BP systolic 82–154; BP diastolic 56–89; PULSE 62–110; RESP 11–47; TEMP 97.8–100.2; O2SAT 97–100
[2016-10-26] MEDS: CHLORHEXIDINE GLUCONATE 2 % 1 PACK (2 CLOTHS)(taper/protocol) TOPICAL SCH (04:00)
[2016-10-26 06:19] LABS: MEAN CELL VOLUME 107.4 FL (80.0-100.0); MEAN CORPUSCULAR HEMOGLOBIN 36.5 PG (27.0-34.0); PLATELET COUNT 140 TH/MM3 (150-450); RED BLOOD COUNT 3.08 MIL/MM3 (4.50-5.90); RED CELL DISTRIBUTION WIDTH 13.7 % (11.6-17.2); REVIEW FLAG FINAL; WHITE BLOOD COUNT 7.9 TH/MM3 (4.0-11.0)
[2016-10-26 06:27] LABS: POTASSIUM 3.3 MEQ/L (3.5-5.1)
[2016-10-26 06:31] LABS: BICARBONATE 23.4 MEQ/L (21.0-32.0); MAGNESIUM 1.9 MG/DL (1.5-2.5)
[2016-10-26 06:36] LABS: INDIRECT BILIRUBIN 0.6 MG/DL (0.0-0.8); TOTAL BILIRUBIN ADULT 0.8 MG/DL (0.2-1.0)
[2016-10-26] MEDS: FOLIC ACID 1 MG TAB PO SCH (09:00)
[2016-10-26 09:53] LABS: BLOOD GAS BASE EXCESS -0.1 mmol/L (-2-2); BLOOD GAS CARBOXYHEMOGLOBIN 1.4 % (0-4); BLOOD GAS HCO3 24 mmol/L (22-26); BLOOD GAS METHEMOGLOBIN 0.9 % (0-2); BLOOD GAS O2 HGB SATURATION 95 % (90-100); BLOOD GAS OXYGEN CONTENT 19.7 Vol % (12.0-20.0); BLOOD GAS PCO2 38 mmHg (38-42); BLOOD GAS PO2 83 mmHg (61-120); BLOOD GAS TOTAL HGB 14.8 G/DL (12.0-16.0); TEMP CORR TO 98.6
[2016-10-26 09:54] LABS: CRITICAL VALUE NO; DRAW SITE LT RADIAL; LITER FLOW 2 L/M; NUMBER OF ARTERIAL PUNCTURES 1; OXYGEN DEVICE NASAL CANNULA; STAT YES; ULNAR PULSE PRESENT
[2016-10-26] MEDS ORDERED: FUROSEMIDE 40 MG/4 ML VIAL IV PUSH ONE (10:00)
--- NOTE | 2016-10-26 10:12 | RADHPO ---
EXAM DATE/TIME: 10/26/2016 09:28 [facility] COMPARISON: CHEST SINGLE AP, October 25, 2016, 11:36. INDICATIONS : Shortness of breath. MEDICAL HISTORY : Chronic obstructive pulmonary disease. Hepatitis C. Asthma. SURGICAL HISTORY : Hernia repair. ENCOUNTER: Subsequent ACUITY: 4 - 6 days PAIN SCORE: Non-responsive. LOCATION: Bilateral chest FINDINGS: Single AP view of the chest. Calcified granuloma again seen in the right upper lung. The lungs are ot herwise clear. Cardiomediastinal silhouette within normal limits. No evidence of pleural effusion or pneumothorax. CONCLUSION: No acute cardiopulmonary disease identified. Jaden Corona MD on October 26, 2016 at 10:10 Board Certified Radiologist. This report was verified electronically.
[2016-10-26] MEDS: HEPARIN SODIUM - SQ 10,000 UNITS/ML VIAL SQ SCH ×2 (10:35→20:19)
[2016-10-26] MEDS: PIPERACIL-TAZO 4.5 GM PREMIX 100 ML IV SCH ×3 (10:35→22:51)
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
--- NOTE | 2016-10-26 11:14 | HHI.PR ---
Subjective Remarks The patient was lethargic but responding to questions. He stated that he wanted to go home tomorrow. He did not seem to have any acute complaints. He appeared comfortable later on, earlier he was showing signs of respiratory distress and was coughing up copious secretions. Nursing was at the bedside. Objective Vitals Vital Signs Date Time Temp Pulse Resp B/P Pulse Ox O2 Delivery O2 Flow Rate FiO2 10/26/16 08:57 100 Nasal Cannula 2.00 10/26/16 08:00 88 30 139/68 100 10/26/16 07:00 98.2 68 19 120/64 100 10/26/16 06:01 76 23 109/70 100 10/26/16 06:00 76 10/26/16 05:01 84 24 104/60 100 10/26/16 04:01 97.8 74 24 104/65 100 10/26/16 04:00 74 10/26/16 03:01 68 22 103/60 100 10/26/16 02:04 72 26 102/59 100 10/26/16 02:00 62 10/26/16 00:59 76 30 134/74 100 10/26/16 00:00 66 10/25/16 23:59 98.9 68 26 110/62 100 10/25/16 23:02 80 33 91/59 99 10/25/16 22:09 94 35 134/73 100 10/25/16 22:00 100 10/25/16 21:02 106 36 133/82 99 10/25/16 20:59 97 Nasal Cannula 1.00 10/25/16 20:02 97.9 106 42 182/82 94 10/25/16 20:00 114 10/25/16 19:02 98 36 122/71 100 10/25/16 18:02 106 32 175/80 98 10/25/16 18:00 106 10/25/16 17:03 102 27 171/76 100 10/25/16 16:01 98.6 106 42 159/82 100 10/25/16 16:00 106 10/25/16 15:01 102 31 181/95 100 10/25/16 14:00 80 10/25/16 14:00 80 30 152/77 100 10/25/16 13:00 84 39 145/73 99 10/25/16 12:00 99.0 94 35 149/73 100 10/25/16 12:00 94 I/O 10/25/16 10/25/16 10/25/16 10/26/16 10/26/16 10/26/16 07:00 15:00 23:00 07:00 15:00 23:00 Intake Total 560 ml 1458 ml 819 ml Output Total 350 ml 1550 ml Balance 210 ml -92 ml 819 ml IV Total 560 ml 1458 ml 819 ml Output Urine Total 350 ml 1550 ml # Voids 2 # Bowel Movements 0 Result Diagram: 10/26/16 0606 10/26/16 0606 Imaging Last Impressions Chest X-Ray 10/26/16 0000 Signed Impressions: Service Date/Time: Wednesday, October 26, 2016 09:28 - CONCLUSION: No acute cardiopulmonary disease identified. Jaden Corona MD Lung Scan-V Nuclear Medicine 10/25/16 0000 Signed Impressions: Service Date/Time: Tuesday, October 25, 2016 16:11 - CONCLUSION: Possible artifactual appearance of diminished perfusion to both lower lobes and may consider CT angiography to further characterize. Josh Henderson MD Head CT 10/25/16 0000 Signed Impressions: Service Date/Time: Tuesday, October 25, 2016 13:36 - CONCLUSION: No significant change has occurred. Valdo Bell MD Objective Remarks GENERAL: Lethargic. SKIN: No rashes, ecchymoses or lesions. Warm and dry. HEAD: Atraumatic. Normocephalic. No temporal or scalp tenderness. EYES: Pupils equal round and reactive. Bilateral drainage noted. ENT: Nose without bleeding, purulent drainage or septal hematoma. Airway patent. NECK: Trachea midline. No lymphadenopathy. Supple, nontender, no meningeal signs. CARDIOVASCULAR: Regular rate and rhythm without murmurs, gallops, or rubs. No JVD. RESPIRATORY: Moderate rhonchi, no wheezing. GASTROINTESTINAL: Abdomen soft, non-tender, nondistended. No guarding. MUSCULOSKELETAL: Extremities without clubbing, cyanosis, or edema. NEUROLOGICAL: Lethargic but answering some questions. No focal neurological deficits. Confused. PSYCH: Withdrawn. Medications and IVs Current Medications Medications (Trade) Dose Ordered Sig/Lavelle Route Start Time Stop Time Status Last Admin (Folate) 1 mg DAILY PO 10/23/16 09:00 10/28/16 08:59 10/24/16 09:28 (Romazicon Inj) 0.2 mg Q1M PRN IV PUSH 10/22/16 13:45 (Haldol Inj) 2 mg Q15M PRN IM 10/22/16 13:45 10/23/16 20:31 (Tylenol) 650 mg Q4H PRN PO 10/22/16 13:45 (Zofran Inj) 4 mg Q6H PRN IV 10/22/16 13:45 (Colace) 100 mg BID PRN PO 10/22/16 13:45 (Milk Of Magnesia Liq) 30 ml DAILY PRN PO 10/22/16 13:45 (Mag-Al Plus Susp Liq) 30 ml Q6H PRN PO 10/22/16 13:45 (Tums Chew) 1,000 mg TID PRN CHEW 10/22/16 13:45 (Lopressor) 25 mg DAILY PO 10/22/16 14:00 10/24/16 09:28 (Prinivil) 2.5 mg DAILY PO 10/23/16 09:00 10/24/16 09:28 (Vasotec Inj) 1.25 mg Q6H PRN IV 10/22/16 14:00 10/25/16 15:15 (Catapres) 0.1 mg Q6H PRN PO 10/22/16 14:00 (Pill Splitter) 1 ea UNSCH PRN OTHER 10/22/16 14:00 (Vitamin B1) 100 mg DAILY PO 10/25/16 09:00 ([place] 5-325 Mg) 1 tab Q6H PRN PO 10/22/16 14:45 Miscellaneous Information Patient in critical care unit? Ass... Q361D .XX 10/22/16 23:15 10/22/16 23:15 (Chlorhexidine 2% Cloth) 3 pack DAILY@04 TOPICAL 10/23/16 04:00 10/27/16 04:01 10/26/16 04:00 (Chlorhexidine 2% Cloth) 3 pack UNSCH PRN TOPICAL 10/22/16 23:15 10/27/16 23:03 (Heparin Inj) 5,000 units Q12HR SQ 10/23/16 09:00 10/26/16 10:35 (SEROquel) 25 mg BID PO 10/24/16 21:00 Hold 10/24/16 20:37 Lorazepam 2 mg 2 mg Q2H PRN IV PUSH 10/25/16 11:30 (Precedex Inj/NS Inj) 52 ml @ 0 mls/hr TITRATE IV 10/25/16 13:30 10/25/16 23:11 Hydralazine HCl 10 mg 10 mg Q4H PRN IV PUSH 10/25/16 16:30 Piperacillin Sod/ Tazobactam Sod 100 ml @ 200 mls/hr Q6H IV 10/26/16 10:00 10/26/16 10:35 (KCl 20 Meq Premix Inj) 100 ml @ 50 mls/hr Q2H IV 10/26/16 11:00 10/26/16 14:59 UNV A/P Problem List: (1) Alcohol withdrawal delirium ICD Code: F10.231 Status: Acute (2) Hyponatremia ICD Code: E87.1 Status: Acute (3) CAD (coronary artery disease) ICD Code: I25.10 Status: Acute Assessment and Plan Alcohol withdrawal Mr. To is a 66 year old male with a history of custodial alcohol abuse who presented to the ED 3-4 days after he stopping alcohol abuse with nausea vomiting and mild fever. Patient had disorganized thoughts as well as weakness which prompted his ex-girlfriend to bring him to the hospital. Later in the day on 10/22/2016, patient became more agitated and started hallucinating. Patient was given Haldol, Ativan, Librium and was started on Precedex. - hold off sedating meds and monitor neuro status. - Thiamine, folic acid. - alcohol cessation instruction. - Ativan as needed for seizures. - Seroquel or Haldol as needed for agitation. Acute metabolic encephalopathy Likely s/t benzos on top of alcohol withdrawal. Questionable component of ODS s/ t quick correction of sodium levels. Head CT unremarkable. - withhold sedating meds and monitor mental status. - Ativan as needed for seizures. - PT/ OT. - diet per ST. NPO for now. - MRI of the brain when stable. - neuro checks. Respiratory distress The pt has tachypnea. Likely respiratory compensation for metabolic acidosis. Had large amount of secretions. CXR unremarkable. V/Q scan with questionable perfusion defect in the lower lobes, may be artifactual. Pt has contrast allergy. - Oxygen and nebs as needed. - Zosyn started 10/26 for aspiration pneumonia coverage. - consult tank riveter if unable to protect airway. - consider CTA with pre-treatment for contrast allergy. Severe hyponatremia S/t alcohol abuse and volume depletion. Na 119 on admission. Patient was started on NS and sodium level increased to 136. S/p D5W. - neuro checks. - follow BMP. - MRI of the brain when stable. Hypertension HTN exacerbated by withdrawal. - treatment as above. - continue metoprolol and lisinopril. CAD S/p 2 stents two years ago. - continue home meds. PPx: Heparin SQ. Discharge Planning Awaiting clinical improvement. Himanshu Crowell DO Oct 26, 2016 11:14
[2016-10-26 11:47] LABS: APTT (PATIENT) 28.2 SEC (24.3-30.1); PROTHROMBIN TIME - PATIENT 11.2 SEC (9.8-11.6)
[2016-10-26] MEDS: POTASSIUM CHLOR 20 MEQ PREMIX 100 ML IV SCH ×2 (11:49→14:11)
[2016-10-26] MEDS: THIAMINE INJ 100 MG in SODIUM CHLORIDE 0.9% INJ 100 ML IV SCH (13:29)
[2016-10-26] MEDS ORDERED: HALOPERIDOL LACTATE 5 MG/ML AMP IM PRN (17:30)
[2016-10-27] VITALS (29 sets, daily range): BP systolic 91–168; BP diastolic 51–93; PULSE 70–100; RESP 4–31; TEMP 98.3–99.4; O2SAT 63–100
[2016-10-27] MEDS: CHLORHEXIDINE GLUCONATE 2 % 1 PACK (2 CLOTHS)(taper/protocol) TOPICAL SCH (04:00)
[2016-10-27] MEDS: PIPERACIL-TAZO 4.5 GM PREMIX 100 ML IV SCH ×4 (04:39→19:57)
[2016-10-27 08:55] LABS: AUTOMATED NEUTROPHIL # 4.9 TH/MM3 (1.8-7.7); BASOPHIL # 0.1 TH/MM3 (0-0.2); BASOPHIL % 1.2 % (0.0-2.0); EOSINOPHIL # 0.2 TH/MM3 (0-0.4); EOSINOPHIL % 3.1 % (0.0-4.0); HEMATOCRIT 34.8 % (39.0-51.0); HEMO FLAGS DIFF FINAL; LYMPH % 7.7 % (9.0-44.0); LYMPHOCYTE # 0.6 TH/MM3 (1.0-4.8); MEAN CELL VOLUME 108.3 FL (80.0-100.0); MEAN CORPUSCULAR HEMOGLOBIN 36.4 PG (27.0-34.0); MEAN CORPUSCULAR HGB CONC 33.6 % (32.0-36.0); MONO % 19.5 % (0.0-8.0); NEUT % 68.5 % (16.0-70.0); PLATELET COUNT 208 TH/MM3 (150-450); RED BLOOD COUNT 3.22 MIL/MM3 (4.50-5.90); RED CELL DISTRIBUTION WIDTH 13.9 % (11.6-17.2); WHITE BLOOD COUNT 7.2 TH/MM3 (4.0-11.0)
[2016-10-27 08:56] LABS: CHLORIDE 96 MEQ/L (98-107); SODIUM (NA) 136 MEQ/L (136-145)
[2016-10-27] MEDS: FOLIC ACID 1 MG TAB PO SCH (09:00)
[2016-10-27 09:01] LABS: ANION GAP 12 MEQ/L (5-15); BICARBONATE 27.8 MEQ/L (21.0-32.0); BLOOD UREA NITROGEN 6 MG/DL (7-18)
[2016-10-27 09:04] LABS: ALT (GPT) 27 U/L (12-78); AST (GOT) 35 U/L (15-37); GLOMERULAR FILTRATION RATE 131 ML/MIN (>89)
[2016-10-27 09:07] LABS: ALKALINE PHOSPHATASE 54 U/L (45-117)
[2016-10-27] MEDS: THIAMINE INJ 100 MG in SODIUM CHLORIDE 0.9% INJ 100 ML IV SCH (10:18)
[2016-10-27] MEDS: HEPARIN SODIUM - SQ 10,000 UNITS/ML VIAL SQ SCH ×2 (10:19→19:56)
--- NOTE | 2016-10-27 13:08 | HHI.PR ---
Subjective Remarks The patient was seen following MRI of the brain. He was more awake and alert and stated he wanted to eat something. His family was at the bedside. The patient was still coughing. Discussed with nursing. Objective Vitals Vital Signs Date Time Temp Pulse Resp B/P Pulse Ox O2 Delivery O2 Flow Rate FiO2 10/27/16 11:01 72 24 166/77 95 10/27/16 11:00 74 24 96 10/27/16 10:01 86 31 149/93 97 10/27/16 10:00 73 10/27/16 10:00 90 25 97 10/27/16 09:01 72 27 91/56 98 10/27/16 09:00 72 27 98 10/27/16 08:00 80 31 125/72 98 10/27/16 08:00 73 10/27/16 07:00 99.4 85 10/27/16 06:01 88 10/27/16 06:01 88 24 126/75 99 10/27/16 05:01 88 30 117/68 100 10/27/16 04:01 98.3 84 26 105/61 100 10/27/16 04:01 84 10/27/16 03:01 96 29 95/56 95 10/27/16 02:01 84 27 103/62 100 10/27/16 02:01 84 10/27/16 01:00 100 10/27/16 01:00 100 29 116/86 100 10/27/16 00:00 99.3 94 30 117/68 100 10/27/16 00:00 94 10/26/16 23:47 94 31 117/69 100 10/26/16 22:47 102 24 98/65 100 10/26/16 22:00 108 10/26/16 21:47 102 37 107/63 100 10/26/16 20:47 110 11 119/71 99 10/26/16 20:07 100 Nasal Cannula 2.00 10/26/16 20:00 100.2 104 23 119/72 99 10/26/16 20:00 104 10/26/16 19:14 110 14 113/70 100 10/26/16 18:00 96 10/26/16 18:00 106 34 115/69 100 10/26/16 17:00 100 33 141/73 100 10/26/16 16:01 99.5 106 35 142/88 100 10/26/16 16:00 106 10/26/16 15:01 94 28 128/74 100 10/26/16 14:01 100 33 82/56 100 10/26/16 14:00 100 I/O 10/26/16 10/26/16 10/26/16 10/27/16 10/27/16 10/27/16 07:00 15:00 23:00 07:00 15:00 23:00 Intake Total 819 ml 536 ml 356 ml Balance 819 ml 536 ml 356 ml IV Total 819 ml 536 ml 356 ml # Voids 2 3 3 # Bowel Movements 0 1 Result Diagram: 10/27/16 0835 10/27/16 0835 Imaging Last Impressions Chest X-Ray 10/26/16 0000 Signed Impressions: Service Date/Time: Wednesday, October 26, 2016 09:28 - CONCLUSION: No acute cardiopulmonary disease identified. Jaden Corona MD Lung Scan-V Nuclear Medicine 10/25/16 0000 Signed Impressions: Service Date/Time: Tuesday, October 25, 2016 16:11 - CONCLUSION: Possible artifactual appearance of diminished perfusion to both lower lobes and may consider CT angiography to further characterize. Josh Henderson MD Head CT 10/25/16 0000 Signed Impressions: Service Date/Time: Tuesday, October 25, 2016 13:36 - CONCLUSION: No significant change has occurred. Valdo Bell MD Objective Remarks GENERAL: NAD. SKIN: No rashes, ecchymoses or lesions. Warm and dry. HEAD: Atraumatic. Normocephalic. No temporal or scalp tenderness. EYES: Pupils equal round and reactive. Bilateral drainage noted. ENT: Nose without bleeding, purulent drainage or septal hematoma. Airway patent. NECK: Trachea midline. No lymphadenopathy. Supple, nontender, no meningeal signs. CARDIOVASCULAR: Regular rate and rhythm without murmurs, gallops, or rubs. No JVD. RESPIRATORY: Moderate rhonchi, no wheezing. GASTROINTESTINAL: Abdomen soft, non-tender, nondistended. No guarding. MUSCULOSKELETAL: Extremities without clubbing, cyanosis, or edema. NEUROLOGICAL: Awake and alert. Generalized weakness. PSYCH: Calm. Medications and IVs Current Medications Medications (Trade) Dose Ordered Sig/Lavelle Route Start Time Stop Time Status Last Admin (Folate) 1 mg DAILY PO 10/23/16 09:00 10/28/16 08:59 10/27/16 09:00 (Romazicon Inj) 0.2 mg Q1M PRN IV PUSH 10/22/16 13:45 (Tylenol) 650 mg Q4H PRN PO 10/22/16 13:45 (Zofran Inj) 4 mg Q6H PRN IV 10/22/16 13:45 (Colace) 100 mg BID PRN PO 10/22/16 13:45 (Milk Of Magnesia Liq) 30 ml DAILY PRN PO 10/22/16 13:45 (Mag-Al Plus Susp Liq) 30 ml Q6H PRN PO 10/22/16 13:45 (Tums Chew) 1,000 mg TID PRN CHEW 10/22/16 13:45 (Lopressor) 25 mg DAILY PO 10/22/16 14:00 Hold 10/24/16 09:28 (Prinivil) 2.5 mg DAILY PO 10/23/16 09:00 Hold 10/24/16 09:28 (Vasotec Inj) 1.25 mg Q6H PRN IV 10/22/16 14:00 10/25/16 15:15 (Catapres) 0.1 mg Q6H PRN PO 10/22/16 14:00 (Pill Splitter) 1 ea UNSCH PRN OTHER 10/22/16 14:00 ([place] 5-325 Mg) 1 tab Q6H PRN PO 10/22/16 14:45 Miscellaneous Information Patient in critical care unit? Ass... Q361D .XX 10/22/16 23:15 10/22/16 23:15 (Chlorhexidine 2% Cloth) 3 pack UNSCH PRN TOPICAL 10/22/16 23:15 10/27/16 23:03 (Heparin Inj) 5,000 units Q12HR SQ 10/23/16 09:00 10/27/16 10:19 (Ativan Inj) 2 mg Q2H PRN IV PUSH 10/25/16 11:30 Hydralazine HCl 10 mg 10 mg Q4H PRN IV PUSH 10/25/16 16:30 Piperacillin Sod/ Tazobactam Sod 100 ml @ 200 mls/hr Q6H IV 10/26/16 10:00 5/1/17 10:13 (Thiamine Inj/NS Inj) 101 ml @ 101 mls/hr DAILY IV 10/26/16 13:00 10/27/16 10:18 Haloperidol Lactate 2 mg 2 mg Q4H PRN IM 10/26/16 17:30 10/27/16 11:31 (KCl 20 Meq Premix Inj) 100 ml @ 50 mls/hr Q2H IV 10/27/16 13:00 10/27/16 16:59 UNV A/P Problem List: (1) Alcohol withdrawal delirium ICD Code: F10.231 Status: Acute (2) Hyponatremia ICD Code: E87.1 Status: Acute (3) CAD (coronary artery disease) ICD Code: I25.10 Status: Acute Assessment and Plan Alcohol withdrawal Mr. 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 Patient had disorganized thoughts as well as weakness which prompted his ex-girlfriend to bring him to the hospital. Later in the day on 10/22/2016, patient became more agitated and started hallucinating. Patient was given Haldol, Ativan, Librium and was started on Precedex. Mental status improved 10/27. - hold off sedating meds and monitor neuro status. - Thiamine, folic acid. - alcohol cessation instruction. - Ativan as needed for seizures. - Seroquel or Haldol as needed for agitation. Acute metabolic encephalopathy Likely s/t benzos on top of alcohol withdrawal. Questionable component of ODS s/ t quick correction of sodium levels. Head CT unremarkable. Mental status improved. - withhold sedating meds and monitor mental status. - Ativan as needed for seizures. - PT/ OT. - diet per ST. NPO for now. - MRI of the brain pending. - neuro checks. Respiratory distress The pt has tachypnea. Likely respiratory compensation for metabolic acidosis. Had large amount of secretions. CXR unremarkable. V/Q scan with questionable perfusion defect in the lower lobes, may be artifactual. Pt has contrast allergy. Respiratory status has improved 10/27. - Oxygen and nebs as needed. - Zosyn started 10/26 for aspiration pneumonia coverage. Continue. - consider CTA with pre-treatment for contrast allergy if respiratory status does not continue to improve. Severe hyponatremia S/t alcohol abuse and volume depletion. Na 119 on admission. Patient was started on NS and sodium level increased to 136. S/p D5W. - neuro checks. - follow BMP. - MRI of the brain pending. Hypertension HTN exacerbated by withdrawal. - treatment as above. - continue metoprolol and lisinopril. CAD S/p 2 stents two years ago. - continue home meds. PPx: Heparin SQ. Discharge Planning Awaiting clinical improvement. Himanshu Crowell DO October 27, 2016 13:08
[2016-10-27] MEDS: POTASSIUM CHLOR 20 MEQ PREMIX 100 ML IV SCH ×2 (13:25→17:06)
--- NOTE | 2016-10-27 16:13 | RADHPO ---
EXAM DATE/TIME: 10/27/2016 12:15 [facility] COMPARISON: No previous studies available for comparison. INDICATIONS : Tetraparesis MEDICAL HISTORY : Hypertension. Afib. SURGICAL HISTORY : Hemorrhoidectomy. Jaw plate, lower leg plate, ENCOUNTER: Initial ACUITY: > 1 year PAIN SCORE: 2/10 LOCATION: Bilateral cranial TECHNIQUE: Multiplanar, multisequence MRI of the brain was performed without contrast. FINDINGS: CEREBRUM: The ventricles are symmetric and slightly prominent. No evidence of midline shift, mass lesion, hemo rrhage or acute infarction. No extraaxial fluid collections are seen. The pituitary gland and supra sellar cistern are normal in configuration. WHITE MATTER: No significant signal abnormalities are seen in the white matter. POSTERIOR FOSSA: The cerebellum and brainstem are intact. The 4th ventricle is midline. The cerebellopontine angle is unremarkable. The cerebellar tonsils are normal in position. DIFFUSION IMAGING: No focal areas of restricted diffusion are seen. No evidence of acute infarction. EXTRACRANIAL: The visualized portions of the orbits and paranasal sinuses are unremarkable. CONCLUSION: No acute intracranial findings Mesfin Maldonado MD on October 27, 2016 at 16:03 Board Certified Radiologist. This report was verified electronically.
[2016-10-27] MEDS: ACETAMINOPHEN/HYDROcodone 325 MG/5 MG TAB PO PRN (19:56)
[2016-10-27 23:13] LABS: POTASSIUM 3.6 MEQ/L (3.5-5.1)
[2016-10-27 23:18] LABS: BICARBONATE 23.3 MEQ/L (21.0-32.0)
[2016-10-28] VITALS (25 sets, daily range): BP systolic 101–184; BP diastolic 59–95; PULSE 70–102; RESP 14–44; TEMP 98.3–98.6; O2SAT 94–100
[2016-10-28] MEDS: PIPERACIL-TAZO 4.5 GM PREMIX 100 ML IV SCH ×4 (04:43→20:16)
[2016-10-28] MEDS: ACETAMINOPHEN/HYDROcodone 325 MG/5 MG TAB PO PRN ×2 (04:47→20:20)
[2016-10-28 05:33] LABS: POTASSIUM 3.6 MEQ/L (3.5-5.1)
[2016-10-28 05:39] LABS: BICARBONATE 27.5 MEQ/L (21.0-32.0); MAGNESIUM 1.6 MG/DL (1.5-2.5)
[2016-10-28] MEDS: HEPARIN SODIUM - SQ 10,000 UNITS/ML VIAL SQ SCH ×2 (09:34→20:15)
[2016-10-28] MEDS: THIAMINE INJ 100 MG in SODIUM CHLORIDE 0.9% INJ 100 ML IV SCH (09:35)
--- NOTE | 2016-10-28 13:52 | HHI.PR ---
Subjective Remarks The patient was sitting up in a chair. He said that he would like to go back to bed. He had no acute complaints. He said he has shortness of breath at times. Objective Vitals Vital Signs Date Time Temp Pulse Resp B/P Pulse Ox O2 Delivery O2 Flow Rate FiO2 10/28/16 06:00 82 10/28/16 06:00 82 19 153/71 96 10/28/16 05:00 84 20 170/77 95 10/28/16 04:00 78 10/28/16 04:00 98.6 78 25 149/76 94 10/28/16 03:00 72 23 126/62 96 10/28/16 03:00 72 10/28/16 02:00 70 23 101/59 95 10/28/16 02:00 70 10/28/16 01:00 80 14 158/70 97 10/28/16 00:03 78 17 145/68 96 10/28/16 00:03 78 10/28/16 00:00 84 10/28/16 00:00 98.4 84 18 167/85 97 10/27/16 23:08 82 4 126/55 96 10/27/16 22:05 72 21 98/51 97 10/27/16 22:00 70 10/27/16 22:00 72 21 98/51 97 10/27/16 20:00 90 10/27/16 19:30 97 21 10/27/16 19:27 99.3 96 15 143/80 96 10/27/16 19:13 94 16 160/82 97 10/27/16 18:00 77 10/27/16 18:00 76 25 141/76 97 10/27/16 17:00 92 19 151/77 99 10/27/16 16:00 99.0 96 29 146/75 93 10/27/16 16:00 90 10/27/16 15:00 90 27 146/73 94 10/27/16 14:00 88 26 168/81 96 10/27/16 14:00 73 I/O 10/27/16 10/27/16 10/27/16 10/28/16 10/28/16 10/28/16 07:00 15:00 23:00 07:00 15:00 23:00 Intake Total 356 ml 634 ml 444 ml 490 ml Balance 356 ml 634 ml 444 ml 490 ml Intake Oral 360 ml 120 ml 240 ml IV Total 356 ml 274 ml 324 ml 250 ml # Voids 3 1 2 3 # Bowel Movements 1 Result Diagram: 10/27/16 0835 10/28/16 0430 Imaging Last Impressions Brain MRI 10/27/16 0000 Signed Impressions: Service Date/Time: Thursday, October 27, 2016 12:15 - CONCLUSION: No acute intracranial findings Mesfin Maldonado MD Chest X-Ray 10/26/16 0000 Signed Impressions: Service Date/Time: Wednesday, October 26, 2016 09:28 - CONCLUSION: No acute cardiopulmonary disease identified. Jaden Corona MD Lung Scan-V Nuclear Medicine 10/25/16 0000 Signed Impressions: Service Date/Time: Tuesday, October 25, 2016 16:11 - CONCLUSION: Possible artifactual appearance of diminished perfusion to both lower lobes and may consider CT angiography to further characterize. Josh Henderson MD Head CT 10/25/16 0000 Signed Impressions: Service Date/Time: Tuesday, October 25, 2016 13:36 - CONCLUSION: No significant change has occurred. Valdo Bell MD Objective Remarks GENERAL: NAD, resting comfortably. SKIN: No rashes, ecchymoses or lesions. Warm and dry. HEAD: Atraumatic. Normocephalic. No temporal or scalp tenderness. EYES: Pupils equal round and reactive. Bilateral drainage noted. ENT: Nose without bleeding, purulent drainage or septal hematoma. Airway patent. NECK: Trachea midline. No lymphadenopathy. Supple, nontender, no meningeal signs. CARDIOVASCULAR: Regular rate and rhythm without murmurs, gallops, or rubs. No JVD. RESPIRATORY: Moderate rhonchi and wheezing. GASTROINTESTINAL: Abdomen soft, non-tender, nondistended. No guarding. MUSCULOSKELETAL: Extremities without clubbing, cyanosis, or edema. NEUROLOGICAL: Awake and alert. Generalized weakness. PSYCH: Mood and affect appropriate. Medications and IVs Current Medications Medications (Trade) Dose Ordered Sig/Lavelle Route Start Time Stop Time Status Last Admin (Romazicon Inj) 0.2 mg Q1M PRN IV PUSH 10/22/16 13:45 (Tylenol) 650 mg Q4H PRN PO 10/22/16 13:45 (Zofran Inj) 4 mg Q6H PRN IV 10/22/16 13:45 (Colace) 100 mg BID PRN PO 10/22/16 13:45 (Milk Of Magnesia Liq) 30 ml DAILY PRN PO 10/22/16 13:45 (Mag-Al Plus Susp Liq) 30 ml Q6H PRN PO 10/22/16 13:45 (Tums Chew) 1,000 mg TID PRN CHEW 10/22/16 13:45 (Lopressor) 25 mg DAILY PO 10/22/16 14:00 Hold 10/24/16 09:28 (Prinivil) 2.5 mg DAILY PO 10/23/16 09:00 Hold 10/24/16 09:28 (Vasotec Inj) 1.25 mg Q6H PRN IV 10/22/16 14:00 10/25/16 15:15 (Catapres) 0.1 mg Q6H PRN PO 10/22/16 14:00 (Pill Splitter) 1 ea UNSCH PRN OTHER 10/22/16 14:00 ([place] 5-325 Mg) 1 tab Q6H PRN PO 10/22/16 14:45 10/28/16 04:47 Miscellaneous Information Patient in critical care unit? Ass... Q361D .XX 10/22/16 23:15 10/22/16 23:15 (Heparin Inj) 5,000 units Q12HR SQ 10/23/16 09:00 10/28/16 09:34 (Ativan Inj) 2 mg Q2H PRN IV PUSH 10/25/16 11:30 Hydralazine HCl 10 mg 10 mg Q4H PRN IV PUSH 10/25/16 16:30 Piperacillin Sod/ Tazobactam Sod 100 ml @ 200 mls/hr Q6H IV 10/26/16 10:00 10/28/16 11:10 (Thiamine Inj/NS Inj) 101 ml @ 101 mls/hr DAILY IV 10/26/16 13:00 10/28/16 09:35 (Haldol Inj) 2 mg Q4H PRN IM 10/26/16 17:30 10/27/16 11:31 A/P Problem List: (1) Alcohol withdrawal delirium ICD Code: F10.231 Status: Acute (2) Hyponatremia ICD Code: E87.1 Status: Acute (3) CAD (coronary artery disease) ICD Code: I25.10 Status: Acute Assessment and Plan Alcohol withdrawal Mr. 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 Patient had disorganized thoughts as well as weakness which prompted his ex-girlfriend to bring him to the hospital. Later in the day on 10/22/2016, patient became more agitated and started hallucinating. Patient was given Haldol, Ativan, Librium and was started on Precedex. Mental status improved 10/27. - hold off sedating meds and monitor neuro status. - Thiamine, folic acid. - alcohol cessation instruction. - Ativan as needed for seizures. - Seroquel or Haldol as needed for agitation. Acute metabolic encephalopathy Likely s/t benzos on top of alcohol withdrawal. Head CT and MRI unremarkable. Mental status improved. - withhold sedating meds and monitor mental status. - Ativan as needed for seizures. - PT/ OT. - diet per ST. - neuro checks. Respiratory distress The pt has tachypnea. Likely respiratory compensation for metabolic acidosis. Had large amount of secretions. CXR unremarkable. V/Q scan with questionable perfusion defect in the lower lobes, may be artifactual. Pt has contrast allergy. Respiratory status has improved 10/27. - Oxygen and nebs as needed. - Zosyn started 10/26 for aspiration pneumonia coverage. Continue. Severe hyponatremia S/t alcohol abuse and volume depletion. Na 119 on admission. Patient was started on NS and sodium level increased to 136. S/p D5W. - neuro checks. - follow BMP. Hypertension HTN exacerbated by withdrawal. - treatment as above. - continue metoprolol and lisinopril. CAD S/p 2 stents two years ago. - continue home meds. PPx: Heparin SQ. Discharge Planning Transfer to floor. Himanshu Crowell DO October 28, 2016 13:52
[2016-10-28] MEDS ORDERED: MAGNESIUM SULFATE 1 GM PREMIX 100 ML IV ONE (14:00)
[2016-10-28] MEDS ORDERED: POTASSIUM CHLORIDE 25 MEQ EFFERVESCENT TAB PO ONE (14:00)
[2016-10-28] MEDS: RESP: ALBUTEROL 2.5 MG/IPRATROPIUM 0.5 MG NEB (SCH) NEB ×2 (15:53→19:32)
[2016-10-29] VITALS (18 sets, daily range): BP systolic 93–154; BP diastolic 55–80; PULSE 64–106; RESP 19–29; TEMP 97.8–98.7; O2SAT 95–100
[2016-10-29] MEDS: PIPERACIL-TAZO 4.5 GM PREMIX 100 ML IV SCH ×4 (04:12→19:51)
[2016-10-29] MEDS: ACETAMINOPHEN/HYDROcodone 325 MG/5 MG TAB PO PRN ×3 (06:22→19:59)
[2016-10-29] MEDS: RESP: ALBUTEROL 2.5 MG/IPRATROPIUM 0.5 MG NEB (SCH) NEB ×3 (07:21→20:16)
[2016-10-29] MEDS: HEPARIN SODIUM - SQ 10,000 UNITS/ML VIAL SQ SCH ×2 (09:22→19:51)
[2016-10-29] MEDS: THIAMINE INJ 100 MG in SODIUM CHLORIDE 0.9% INJ 100 ML IV SCH (09:22)
--- NOTE | 2016-10-29 12:50 | HHI.PR ---
Subjective Remarks The patient was sitting up in a chair. He said he still felt weak, much weaker than baseline. He said he was breathing well. He has been tolerating a diet. He said he was about to work with physical therapy. Objective Vitals Vital Signs Date Time Temp Pulse Resp B/P Pulse Ox O2 Delivery O2 Flow Rate FiO2 10/29/16 07:59 98.5 10/29/16 07:24 95 21 10/29/16 07:00 70 10/29/16 07:00 70 24 119/67 10/29/16 06:00 74 20 149/79 10/29/16 06:00 74 10/29/16 05:00 78 19 139/79 10/29/16 05:00 78 10/29/16 04:00 78 10/29/16 04:00 98.3 78 25 150/74 100 10/29/16 03:00 64 19 107/65 10/29/16 02:00 64 10/29/16 02:00 64 20 93/55 10/29/16 01:00 88 21 154/77 10/29/16 00:00 80 10/29/16 00:00 98.7 80 20 101/57 100 10/28/16 23:07 92 20 115/61 10/28/16 22:00 94 10/28/16 22:00 94 24 107/63 100 10/28/16 21:00 98 32 120/61 10/28/16 20:00 92 10/28/16 20:00 92 32 175/82 100 10/28/16 19:41 84 18 175/65 100 10/28/16 19:32 100 21 10/28/16 19:18 98.6 82 24 175/95 10/28/16 19:04 92 22 184/91 10/28/16 19:00 84 20 174/78 10/28/16 18:00 70 44 128/74 98 10/28/16 18:00 70 10/28/16 17:00 90 28 156/79 10/28/16 16:00 90 17 164/79 94 10/28/16 16:00 90 10/28/16 15:54 96 21 10/28/16 15:00 98.3 84 24 151/79 97 10/28/16 15:00 84 10/28/16 14:26 82 21 144/73 95 10/28/16 14:00 102 10/28/16 14:00 102 28 95 10/28/16 13:00 78 17 121/59 94 I/O 10/28/16 10/28/16 10/28/16 10/29/16 10/29/16 10/29/16 07:00 15:00 23:00 07:00 15:00 23:00 Intake Total 490 ml 678 ml 440 ml 185 ml Output Total 200 ml 400 ml 300 ml Balance 490 ml 478 ml 40 ml -115 ml Intake Oral 240 ml 460 ml 240 ml 60 ml IV Total 250 ml 218 ml 200 ml 125 ml Output Urine Total 200 ml 400 ml 300 ml # Voids 3 # Bowel Movements 1 Result Diagram: 10/27/16 0835 10/28/16 0430 Imaging Last Impressions Brain MRI 10/27/16 0000 Signed Impressions: Service Date/Time: Thursday, October 27, 2016 12:15 - CONCLUSION: No acute intracranial findings Mesfin Maldonado MD Chest X-Ray 10/26/16 0000 Signed Impressions: Service Date/Time: Wednesday, October 26, 2016 09:28 - CONCLUSION: No acute cardiopulmonary disease identified. Jaden Corona MD Lung Scan- Nuclear Medicine 10/25/16 0000 Signed Impressions: Service Date/Time: Tuesday, October 25, 2016 16:11 - CONCLUSION: Possible artifactual appearance of diminished perfusion to both lower lobes and may consider CT angiography to further characterize. Josh Henderson MD Head CT 10/25/16 0000 Signed Impressions: Service Date/Time: Tuesday, October 25, 2016 13:36 - CONCLUSION: No significant change has occurred. Valdo Bell MD Objective Remarks GENERAL: NAD, resting comfortably. SKIN: No rashes, ecchymoses or lesions. Warm and dry. HEAD: Atraumatic. Normocephalic. No temporal or scalp tenderness. EYES: Pupils equal round and reactive. Bilateral drainage noted. ENT: Nose without bleeding, purulent drainage or septal hematoma. Airway patent. NECK: Trachea midline. No lymphadenopathy. Supple, nontender, no meningeal signs. CARDIOVASCULAR: Regular rate and rhythm without murmurs, gallops, or rubs. No JVD. RESPIRATORY: Moderate rhonchi and wheezing. GASTROINTESTINAL: Abdomen soft, non-tender, nondistended. No guarding. MUSCULOSKELETAL: Extremities without clubbing, cyanosis, or edema. NEUROLOGICAL: Awake and alert. Generalized weakness, 4/5 strength. PSYCH: Mood and affect appropriate. Medications and IVs Current Medications Medications (Trade) Dose Ordered Sig/Lavelle Route Start Time Stop Time Status Last Admin (Romazicon Inj) 0.2 mg Q1M PRN IV PUSH 10/22/16 13:45 (Tylenol) 650 mg Q4H PRN PO 10/22/16 13:45 (Zofran Inj) 4 mg Q6H PRN IV 10/22/16 13:45 (Colace) 100 mg BID PRN PO 10/22/16 13:45 (Milk Of Magnesia Liq) 30 ml DAILY PRN PO 10/22/16 13:45 (Mag-Al Plus Susp Liq) 30 ml Q6H PRN PO 10/22/16 13:45 (Tums Chew) 1,000 mg TID PRN CHEW 10/22/16 13:45 (Lopressor) 25 mg DAILY PO 10/22/16 14:00 Hold 10/24/16 09:28 (Prinivil) 2.5 mg DAILY PO 10/23/16 09:00 Hold 10/24/16 09:28 (Vasotec Inj) 1.25 mg Q6H PRN IV 10/22/16 14:00 10/25/16 15:15 (Catapres) 0.1 mg Q6H PRN PO 10/22/16 14:00 10/28/16 20:15 (Pill Splitter) 1 ea UNSCH PRN OTHER 10/22/16 14:00 ([place] 5-325 Mg) 1 tab Q6H PRN PO 10/22/16 14:45 10/29/16 06:22 Miscellaneous Information Patient in critical care unit? Ass... Q361D .XX 10/22/16 23:15 10/22/16 23:15 (Heparin Inj) 5,000 units Q12HR SQ 10/23/16 09:00 10/29/16 09:22 (Ativan Inj) 2 mg Q2H PRN IV PUSH 10/25/16 11:30 Hydralazine HCl 10 mg 10 mg Q4H PRN IV PUSH 10/25/16 16:30 Piperacillin Sod/ Tazobactam Sod 100 ml @ 200 mls/hr Q6H IV 10/26/16 10:00 10/29/16 09:23 (Thiamine Inj/NS Inj) 101 ml @ 101 mls/hr DAILY IV 10/26/16 13:00 10/29/16 09:22 (Haldol Inj) 2 mg Q4H PRN IM 10/26/16 17:30 10/27/16 11:31 A/P Problem List: (1) Alcohol withdrawal delirium ICD Code: F10.231 Status: Acute (2) Hyponatremia ICD Code: E87.1 Status: Acute (3) CAD (coronary artery disease) ICD Code: I25.10 Status: Acute Assessment and Plan Alcohol withdrawal Mr. To is a 66 year old male with a history of residential alcohol abuse who presented to the ED 3-4 days after he stopping alcohol abuse with nausea vomiting and mild fever. Patient had disorganized thoughts as well as weakness which prompted his ex-girlfriend to bring him to the hospital. Later in the day on 10/22/2016, patient became more agitated and started hallucinating. Patient was given Haldol, Ativan, Librium and was started on Precedex. Mental status improved 10/27. - hold off sedating meds and monitor neuro status. - Thiamine, folic acid. - alcohol cessation instruction. - Ativan as needed for seizures. Acute metabolic encephalopathy/ Generalized weakness Likely s/t benzos on top of alcohol withdrawal. Head CT and MRI unremarkable. Mental status improved. Still has generalized weakness. - withhold sedating meds and monitor mental status. - Ativan as needed for seizures. - PT/ OT. - diet per ST. - neuro checks. - neurology consult for weakness if does not continue to improve with therapy. Respiratory distress The pt has tachypnea. Likely respiratory compensation for metabolic acidosis. Had large amount of secretions. CXR unremarkable. V/Q scan with questionable perfusion defect in the lower lobes, may be artifactual. Pt has contrast allergy. Respiratory status has improved 10/27. - Oxygen and nebs as needed. - Zosyn started 10/26 for aspiration pneumonia coverage. Continue. - check Duplex US of the lower extremities. Severe hyponatremia S/t alcohol abuse and volume depletion. Na 119 on admission. Patient was started on NS and sodium level increased to 136. S/p D5W. - neuro checks. - follow BMP. Resolved. Hypertension HTN exacerbated by withdrawal. Improved. - treatment as above. - continue metoprolol and lisinopril. CAD S/p 2 stents two years ago. - continue home meds. PPx: Heparin SQ. Discharge Planning Transfer to floor. Himanshu Crowell DO October 29, 2016 12:50
--- NOTE | 2016-10-29 18:03 | RADHPO ---
EXAM DATE/TIME: 10/29/2016 17:29 [facility] COMPARISON: No previous studies available for comparison. INDICATIONS : Shortness of breath. MEDICAL HISTORY : Hepatitis C. Chronic obstructive pulmonary disease. Afib. SURGICAL HISTORY : Intracranial aneurysm repair. Right leg surgery. ENCOUNTER: Initial ACUITY: 4 - 6 days PAIN SCORE: 5/10 LOCATION: Bilateral leg. TECHNIQUE: Venous ultrasound of the left and right leg was performed from the inguinal ligament to the proximal calf. Real-time, color Doppler and spectral tracing, compression and augmentation techniques were us ed. FINDINGS: RIGHT LEG: There is normal compressibility of the deep venous system from the inguinal region to the proximal ca lf. No echogenic clot is seen in the lumen of the common femoral, femoral, popliteal, and posterior tibial veins. There is a normal response of the venous system to proximal and distal augmentation an d respiration. LEFT LEG: There is normal compressibility of the deep venous system from the inguinal region to the proximal ca lf. No echogenic clot is seen in the lumen of the common femoral, femoral, popliteal, and posterior tibial veins. There is a normal response of the venous system to proximal and distal augmentation an d respiration. CONCLUSION: Normal examination. Mesfin Maldonado MD on October 29, 2016 at 18:01 Board Certified Radiologist. This report was verified electronically.
[2016-10-30] VITALS (16 sets, daily range): BP systolic 83–142; BP diastolic 47–72; PULSE 66–96; RESP 15–51; TEMP 98.1–98.4; O2SAT 95–99
[2016-10-30] MEDS: ACETAMINOPHEN/HYDROcodone 325 MG/5 MG TAB PO PRN ×4 (01:13→19:46)
[2016-10-30] MEDS: PIPERACIL-TAZO 4.5 GM PREMIX 100 ML IV SCH ×4 (05:16→19:48)
[2016-10-30 05:20] LABS: HEMATOCRIT 32.7 % (39.0-51.0); MEAN CELL VOLUME 106.5 FL (80.0-100.0); MEAN CORPUSCULAR HEMOGLOBIN 35.8 PG (27.0-34.0); MEAN CORPUSCULAR HGB CONC 33.6 % (32.0-36.0); PLATELET COUNT 449 TH/MM3 (150-450); RED BLOOD COUNT 3.07 MIL/MM3 (4.50-5.90); RED CELL DISTRIBUTION WIDTH 14.3 % (11.6-17.2); REVIEW FLAG FINAL; WHITE BLOOD COUNT 7.7 TH/MM3 (4.0-11.0)
[2016-10-30 05:30] LABS: POTASSIUM 3.2 MEQ/L (3.5-5.1)
[2016-10-30 05:38] LABS: BICARBONATE 29.5 MEQ/L (21.0-32.0); MAGNESIUM 1.7 MG/DL (1.5-2.5)
[2016-10-30] MEDS: RESP: ALBUTEROL 2.5 MG/IPRATROPIUM 0.5 MG NEB (SCH) NEB ×3 (07:51→20:01)
[2016-10-30] MEDS: HEPARIN SODIUM - SQ 10,000 UNITS/ML VIAL SQ SCH ×2 (08:19→19:46)
[2016-10-30] MEDS: THIAMINE INJ 100 MG in SODIUM CHLORIDE 0.9% INJ 100 ML IV SCH (08:20)
--- NOTE | 2016-10-30 12:54 | HHI.PR ---
Subjective Remarks The patient was resting comfortably in bed. He is looking forward to going home soon. He says he still feels weak but is improving regularly. He would like to work with physical therapy today. He thinks his breathing is fine. He says he has a wheelchair at home. He enjoys drinking the Ensure. Discussed with nursing. Objective Vitals Vital Signs Date Time Temp Pulse Resp B/P Pulse Ox O2 Delivery O2 Flow Rate FiO2 10/30/16 10:00 92 21 10/30/16 09:00 96 24 10/30/16 08:00 98.3 84 15 90/54 10/30/16 08:00 66 10/30/16 07:53 96 21 10/30/16 07:00 78 20 10/30/16 04:00 66 10/30/16 04:00 98.1 66 26 125/66 95 10/30/16 02:00 76 10/30/16 00:00 68 10/30/16 00:00 98.4 68 18 91/47 95 10/29/16 22:00 92 10/29/16 20:15 99 21 10/29/16 20:00 82 10/29/16 20:00 97.8 82 26 140/76 95 10/29/16 16:00 94 10/29/16 16:00 98.1 94 21 122/71 96 10/29/16 15:00 106 24 138/69 I/O 10/29/16 10/29/16 10/29/16 10/30/16 10/30/16 10/30/16 07:00 15:00 23:00 07:00 15:00 23:00 Intake Total 185 ml 832 ml 100 ml 58 ml Output Total 300 ml 200 ml 100 ml 150 ml Balance -115 ml 632 ml 0 ml -92 ml Intake Oral 60 ml 600 ml IV Total 125 ml 232 ml 100 ml 58 ml Output Urine Total 300 ml 200 ml 100 ml 150 ml # Voids 3 # Bowel Movements 0 Result Diagram: 10/30/16 0440 10/30/16 0440 Imaging Last Impressions Lower Extremity Ultrasound 10/29/16 0000 Signed Impressions: Service Date/Time: Saturday, October 29, 2016 17:29 - CONCLUSION: Normal examination. Mesfin Maldonado MD Brain MRI 10/27/16 0000 Signed Impressions: Service Date/Time: Thursday, October 27, 2016 12:15 - CONCLUSION: No acute intracranial findings Mesfin Maldonado MD Chest X-Ray 10/26/16 0000 Signed Impressions: Service Date/Time: Wednesday, October 26, 2016 09:28 - CONCLUSION: No acute cardiopulmonary disease identified. Jaden Corona MD Lung Scan-VQ Nuclear Medicine 10/25/16 0000 Signed Impressions: Service Date/Time: Tuesday, October 25, 2016 16:11 - CONCLUSION: Possible artifactual appearance of diminished perfusion to both lower lobes and may consider CT angiography to further characterize. Josh Henderson MD Head CT 10/25/16 0000 Signed Impressions: Service Date/Time: Tuesday, October 25, 2016 13:36 - CONCLUSION: No significant change has occurred. Valdo Bell MD Objective Remarks GENERAL: NAD, resting comfortably. SKIN: No rashes, ecchymoses or lesions. Warm and dry. HEAD: Atraumatic. Normocephalic. No temporal or scalp tenderness. EYES: Pupils equal round and reactive. Bilateral drainage noted. ENT: Nose without bleeding, purulent drainage or septal hematoma. Airway patent. NECK: Trachea midline. No lymphadenopathy. Supple, nontender, no meningeal signs. CARDIOVASCULAR: Regular rate and rhythm without murmurs, gallops, or rubs. No JVD. RESPIRATORY: Moderate rhonchi. GASTROINTESTINAL: Abdomen soft, non-tender, nondistended. No guarding. MUSCULOSKELETAL: Extremities without clubbing, cyanosis, or edema. NEUROLOGICAL: Awake and alert. Generalized weakness, 4/5 strength. PSYCH: Mood and affect appropriate. Medications and IVs Current Medications Medications (Trade) Dose Ordered Sig/Lavelle Route Start Time Stop Time Status Last Admin (Romazicon Inj) 0.2 mg Q1M PRN IV PUSH 10/22/16 13:45 (Tylenol) 650 mg Q4H PRN PO 10/22/16 13:45 (Zofran Inj) 4 mg Q6H PRN IV 10/22/16 13:45 (Colace) 100 mg BID PRN PO 10/22/16 13:45 (Milk Of Magnesia Liq) 30 ml DAILY PRN PO 10/22/16 13:45 (Mag-Al Plus Susp Liq) 30 ml Q6H PRN PO 10/22/16 13:45 (Tums Chew) 1,000 mg TID PRN CHEW 10/22/16 13:45 (Lopressor) 25 mg DAILY PO 10/22/16 14:00 Hold 10/24/16 09:28 (Prinivil) 2.5 mg DAILY PO 10/23/16 09:00 Hold 10/24/16 09:28 (Vasotec Inj) 1.25 mg Q6H PRN IV 10/22/16 14:00 10/25/16 15:15 (Catapres) 0.1 mg Q6H PRN PO 10/22/16 14:00 10/28/16 20:15 (Pill Splitter) 1 ea UNSCH PRN OTHER 10/22/16 14:00 ([place] 5-325 Mg) 1 tab Q6H PRN PO 10/22/16 14:45 10/30/16 06:39 Miscellaneous Information Patient in critical care unit? Ass... Q361D .XX 10/22/16 23:15 10/22/16 23:15 (Heparin Inj) 5,000 units Q12HR SQ 10/23/16 09:00 10/30/16 08:19 (Ativan Inj) 2 mg Q2H PRN IV PUSH 10/25/16 11:30 Hydralazine HCl 10 mg 10 mg Q4H PRN IV PUSH 10/25/16 16:30 Piperacillin Sod/ Tazobactam Sod 100 ml @ 200 mls/hr Q6H IV 10/26/16 10:00 10/30/16 08:20 (Thiamine Inj/NS Inj) 101 ml @ 101 mls/hr DAILY IV 10/26/16 13:00 10/30/16 08:20 (Haldol Inj) 2 mg Q4H PRN IM 10/26/16 17:30 10/27/16 11:31 (K-Lyte Cl Eff) 50 meq ONCE ONCE PO 10/30/16 13:00 10/30/16 13:01 A/P Problem List: (1) Alcohol withdrawal delirium ICD Code: F10.231 Status: Acute (2) Hyponatremia ICD Code: E87.1 Status: Acute (3) CAD (coronary artery disease) ICD Code: I25.10 Status: Acute Assessment and Plan Alcohol withdrawal Mr. To is a 66 year old male with a history of intermediate alcohol abuse who presented to the ED 3-4 days after he stopping alcohol abuse with nausea vomiting and mild fever. Patient had disorganized thoughts as well as weakness which prompted his ex-girlfriend to bring him to the hospital. Later in the day on 10/22/2016, patient became more agitated and started hallucinating. Patient was given Haldol, Ativan, Librium and was started on Precedex. Mental status improved 10/27. - hold off sedating meds and monitor neuro status. Back to baseline. - Thiamine, folic acid. - alcohol cessation instruction. - Ativan as needed for seizures. Acute metabolic encephalopathy/ Generalized weakness Likely s/t benzos on top of alcohol withdrawal. Head CT and MRI unremarkable. Mental status improved. Still has generalized weakness. The pt does have a wheelchair at home so he does have some weakness at baseline. He says he is slowly improving. - withhold sedating meds and monitor mental status. Back to baseline. - PT/ OT. - ADAT. - neuro checks. Respiratory distress The pt has tachypnea. Likely respiratory compensation for metabolic acidosis. Had large amount of secretions. CXR unremarkable. V/Q scan with questionable perfusion defect in the lower lobes, may be artifactual. Pt has contrast allergy , unable to pursue CTA. Duplex US of LEs without DVT. Respiratory status stable. - Oxygen and nebs as needed. - Zosyn started 10/26 for aspiration pneumonia coverage. D/c 11/01. - sputum culture requested. - incentive spirometry. Severe hyponatremia S/t alcohol abuse and volume depletion. Na 119 on admission. Patient was started on NS and sodium level increased to 136. S/p D5W. - neuro checks. - follow BMP. Resolved. Hypokalemia Likely s/t decreased PO intake. - replete and monitor. Hypertension HTN exacerbated by withdrawal. Improved. - treatment as above. - continue metoprolol and lisinopril. CAD S/p 2 stents two years ago. - continue home meds. PPx: Heparin SQ. Discharge Planning Anticipate d/c with [facility] in 1-2 days. Himanshu Crowell DO October 30, 2016 12:54
[2016-10-30] MEDS ORDERED: POTASSIUM CHLORIDE 25 MEQ EFFERVESCENT TAB PO ONE (13:00)
[2016-10-30] MEDS: DOCUSATE SODIUM 100 MG CAP PO SCH ×2 (13:59→19:46)
[2016-10-31] VITALS (8 sets, daily range): BP systolic 98–146; BP diastolic 53–81; PULSE 82–104; RESP 17–22; TEMP 97.7–98.7; O2SAT 93–99
[2016-10-31] MEDS: ACETAMINOPHEN/HYDROcodone 325 MG/5 MG TAB PO PRN ×4 (01:38→20:13)
[2016-10-31] MEDS: PIPERACIL-TAZO 4.5 GM PREMIX 100 ML IV SCH ×4 (03:08→22:12)
[2016-10-31 04:44] LABS: HEMATOCRIT 37.3 % (39.0-51.0); MEAN CELL VOLUME 108.5 FL (80.0-100.0); MEAN CORPUSCULAR HEMOGLOBIN 35.4 PG (27.0-34.0); MEAN CORPUSCULAR HGB CONC 32.6 % (32.0-36.0); PLATELET COUNT 560 TH/MM3 (150-450); RED BLOOD COUNT 3.43 MIL/MM3 (4.50-5.90); RED CELL DISTRIBUTION WIDTH 14.2 % (11.6-17.2); WHITE BLOOD COUNT 8.1 TH/MM3 (4.0-11.0)
[2016-10-31 04:48] LABS: REVIEW FLAG FINAL
[2016-10-31 04:56] LABS: POTASSIUM 3.5 MEQ/L (3.5-5.1)
[2016-10-31 04:59] LABS: BICARBONATE 29.6 MEQ/L (21.0-32.0); MAGNESIUM 1.8 MG/DL (1.5-2.5)
[2016-10-31] MEDS: RESP: ALBUTEROL 2.5 MG/IPRATROPIUM 0.5 MG NEB (SCH) NEB ×3 (07:55→19:37)
[2016-10-31] MEDS: HEPARIN SODIUM - SQ 10,000 UNITS/ML VIAL SQ SCH ×2 (09:54→20:13)
[2016-10-31] MEDS: THIAMINE INJ 100 MG in SODIUM CHLORIDE 0.9% INJ 100 ML IV SCH (09:54)
[2016-10-31] MEDS: DOCUSATE SODIUM 100 MG CAP PO SCH ×3 (09:54→20:18)
--- NOTE | 2016-10-31 17:00 | HHI.PR ---
Subjective Remarks patient denies cp/sob states has been ambulating with aid of walker wants to go home denies fevers/chills Denies visual or auditory hallucinations Still has some tremors Heart rate slightly tachycardic in the high 90s Objective Vitals Vital Signs Date Time Temp Pulse Resp B/P Pulse Ox O2 Delivery O2 Flow Rate FiO2 10/31/16 12:00 98.0 82 19 101/53 10/31/16 08:00 87 10/31/16 08:00 97.7 86 18 131/67 10/31/16 04:00 96 10/31/16 04:00 98.1 96 22 138/69 10/31/16 00:00 98.7 94 17 146/81 10/31/16 00:00 84 10/30/16 20:00 99 21 10/30/16 20:00 98.1 84 29 142/59 10/30/16 20:00 84 I/O 10/30/16 10/30/16 10/30/16 10/31/16 10/31/16 10/31/16 06:59 14:59 22:59 06:59 14:59 22:59 Intake Total 58 ml 950 ml 120 ml 100 ml 800 ml Output Total 150 ml 450 ml 225 ml 350 ml 200 ml Balance -92 ml 500 ml -105 ml -250 ml 600 ml Intake Oral 600 ml 120 ml 600 ml IV Total 58 ml 350 ml 100 ml 200 ml Output Urine Total 150 ml 450 ml 225 ml 350 ml 200 ml # Bowel Movements 2 1 Result Diagram: 10/31/16 0414 10/31/16 0414 Imaging Last Impressions Lower Extremity Ultrasound 10/29/16 0000 Signed Impressions: Service Date/Time: Saturday, October 29, 2016 17:29 - CONCLUSION: Normal examination. Mesfin Maldonado MD Brain MRI 10/27/16 0000 Signed Impressions: Service Date/Time: Thursday, October 27, 2016 12:15 - CONCLUSION: No acute intracranial findings Mesfin Maldonado MD Chest X-Ray 10/26/16 0000 Signed Impressions: Service Date/Time: Wednesday, October 26, 2016 09:28 - CONCLUSION: No acute cardiopulmonary disease identified. Jaden Corona MD Lung Scan- Nuclear Medicine 10/25/16 0000 Signed Impressions: Service Date/Time: Tuesday, October 25, 2016 16:11 - CONCLUSION: Possible artifactual appearance of diminished perfusion to both lower lobes and may consider CT angiography to further characterize. Josh Henderson MD Head CT 10/25/16 0000 Signed Impressions: Service Date/Time: Thursday, October 25, 2016 13:36 - CONCLUSION: No significant change has occurred. Valdo Bell MD Objective Remarks GENERAL: NAD, resting comfortably. SKIN: No rashes, ecchymoses or lesions. Warm and dry. HEAD: Atraumatic. Normocephalic. No temporal or scalp tenderness. EYES: Pupils equal round and reactive. Bilateral drainage noted. ENT: Nose without bleeding, purulent drainage or septal hematoma. Airway patent. NECK: Trachea midline. No lymphadenopathy. Supple, nontender, no meningeal signs. CARDIOVASCULAR: Regular rate and rhythm without murmurs, gallops, or rubs. No JVD. RESPIRATORY: Moderate rhonchi. GASTROINTESTINAL: Abdomen soft, non-tender, nondistended. No guarding. MUSCULOSKELETAL: Extremities without clubbing, cyanosis, or edema. NEUROLOGICAL: Awake and alert. Generalized weakness, 4/5 strength. PSYCH: Mood and affect appropriate. Procedures none Medications and IVs Current Medications Medications (Trade) Dose Ordered Sig/Lavelle Route Start Time Stop Time Status Last Admin (Romazicon Inj) 0.2 mg Q1M PRN IV PUSH 10/22/16 13:45 (Tylenol) 650 mg Q4H PRN PO 10/22/16 13:45 (Zofran Inj) 4 mg Q6H PRN IV 10/22/16 13:45 (Milk Of Magnesia Liq) 30 ml DAILY PRN PO 10/22/16 13:45 (Mag-Al Plus Susp Liq) 30 ml Q6H PRN PO 10/22/16 13:45 (Tums Chew) 1,000 mg TID PRN CHEW 10/22/16 13:45 (Lopressor) 25 mg DAILY PO 10/22/16 14:00 Hold 10/24/16 09:28 (Prinivil) 2.5 mg DAILY PO 10/23/16 09:00 Hold 10/24/16 09:28 (Vasotec Inj) 1.25 mg Q6H PRN IV 10/22/16 14:00 10/25/16 15:15 (Catapres) 0.1 mg Q6H PRN PO 10/22/16 14:00 10/28/16 20:15 (Pill Splitter) 1 ea UNSCH PRN OTHER 10/22/16 14:00 (Bee 5-325 Mg) 1 tab Q6H PRN PO 10/22/16 14:45 10/31/16 13:47 Miscellaneous Information Patient in critical care unit? Ass... Q361D .XX 10/22/16 23:15 10/22/16 23:15 (Heparin Inj) 5,000 units Q12HR SQ 10/23/16 09:00 10/31/16 09:54 (Ativan Inj) 2 mg Q2H PRN IV PUSH 10/25/16 11:30 Hydralazine HCl 10 mg 10 mg Q4H PRN IV PUSH 10/25/16 16:30 Piperacillin Sod/ Tazobactam Sod 100 ml @ 200 mls/hr Q6H IV 10/26/16 10:00 10/31/16 09:53 (Thiamine Inj/NS Inj) 101 ml @ 101 mls/hr DAILY IV 10/26/16 13:00 10/31/16 09:54 (Haldol Inj) 2 mg Q4H PRN IM 10/26/16 17:30 10/27/16 11:31 (Colace) 100 mg BID PO 10/30/16 13:00 10/31/16 09:54 Urinary Catheter: No Vascular Central Line Catheter: No A/P Problem List: (1) Alcohol withdrawal delirium ICD Code: F10.231 Status: Acute Plan: Alcohol withdrawal improving. Treated with CIWA protocol and Precedex initially. Neurological status back to baseline Continue thiamine and folic acid Advised to alcohol cessation. Ativan as needed for seizures. (2) Hyponatremia ICD Code: E87.1 Status: Resolved Plan: Patient with severe hyponatremia of 119 on presentation to hospital. Likely secondary to hypovolemic hyponatremia. Treated with IV fluids. Sodium levels now much improved. (3) CAD (coronary artery disease) ICD Code: I25.10 Status: Chronic Plan: Seems to be stable. Continue lisinopril, metoprolol. I will start patient on aspirin (4) Encephalopathy acute ICD Code: G93.40 Status: Resolved Plan: Due to alcohol withdrawal. Head CT and MRI unremarkable. Encephalopathy now resolved. Sedating medications held due to patient complaining of weakness. Continue to monitor neuro checks (5) Respiratory distress ICD Code: R06.00 Status: Resolved Plan: Patient had episode of tachypnea. Suspect respiratory compensation for metabolic acidosis. Chest x-ray M unremarkable, VQ scan with questionable perfusion defect in the lower lobes. Unable to do CTA due to contrast allergy. The post ultrasound of those remedies without DVT. History status stable now. Continue oxygen and DuoNeb as needed. Status post treatment with IV Zosyn for aspiration pneumonia coverage to be discontinued on 11/01/16. Sputum cultures requested as per records Continue incentive spirometry. (6) HTN (hypertension) ICD Code: I10 Status: Chronic Plan: Blood pressure seems to be stable now. Blood pressure exacerbated and uncontrolled due to withdrawal. Continue metoprolol and lisinopril. (7) Hypokalemia ICD Code: E87.6 Status: Resolved Plan: Likely due to nutritional deficiency. Potassium now within normal range at 3.5. Continue to monitor BMP and replace potassium orally as needed. (8) Anemia ICD Code: D64.9 Status: Chronic Plan: High MCV anemia. B12 within normal range. Hemoglobin stable. Check methylmalonic acid and folate. Continue thiamine which I will switch to by mouth and start folic acid. (9) Thrombocytosis ICD Code: D47.3 Status: Acute Plan: Likely reactive. continue to monitor platelets. Assessment and Plan Gi prophylaxis: I will place on a PPI DVT Prophylaxis: SCD's Problem Qualifiers (1) HTN (hypertension): Qualified Code: I10 - Essential hypertension (2) Anemia: Qualified Code: D64.9 - Anemia, unspecified type Marco Antonio Lucio MD October 31, 2016 17:00
[2016-10-31] MEDS: PANTOPRAZOLE SOD 40 MG DELAYED RELEASE TAB PO SCH (17:16)
[2016-11-01] VITALS (7 sets, daily range): BP systolic 119–163; BP diastolic 71–81; PULSE 76–88; RESP 18–27; TEMP 97.7–98.8; O2SAT 94–99
[2016-11-01] MEDS: ACETAMINOPHEN/HYDROcodone 325 MG/5 MG TAB PO PRN ×3 (02:31→12:30)
[2016-11-01] MEDS: PIPERACIL-TAZO 4.5 GM PREMIX 100 ML IV SCH ×2 (04:32→10:00)
[2016-11-01 07:11] LABS: AUTOMATED NEUTROPHIL # 6.1 TH/MM3 (1.8-7.7); BASOPHIL # 0.1 TH/MM3 (0-0.2); BASOPHIL % 1.6 % (0.0-2.0); EOSINOPHIL # 0.3 TH/MM3 (0-0.4); EOSINOPHIL % 3.4 % (0.0-4.0); HEMATOCRIT 33.6 % (39.0-51.0); LYMPH % 16.4 % (9.0-44.0); LYMPHOCYTE # 1.5 TH/MM3 (1.0-4.8); MEAN CELL VOLUME 110.3 FL (80.0-100.0); MEAN CORPUSCULAR HEMOGLOBIN 36.5 PG (27.0-34.0); MONO % 13.1 % (0.0-8.0); NEUT % 65.5 % (16.0-70.0); PLATELET COUNT 491 TH/MM3 (150-450); RED BLOOD COUNT 3.04 MIL/MM3 (4.50-5.90); RED CELL DISTRIBUTION WIDTH 14.4 % (11.6-17.2); WHITE BLOOD COUNT 9.2 TH/MM3 (4.0-11.0)
[2016-11-01 07:14] LABS: HEMO FLAGS DIFF FINAL
[2016-11-01 07:23] LABS: CHLORIDE 103 MEQ/L (98-107); POTASSIUM 3.4 MEQ/L (3.5-5.1); SODIUM (NA) 142 MEQ/L (136-145)
[2016-11-01 07:30] LABS: ANION GAP 11 MEQ/L (5-15); BICARBONATE 28.5 MEQ/L (21.0-32.0)
[2016-11-01 07:31] LABS: BLOOD UREA NITROGEN 19 MG/DL (7-18); MAGNESIUM 1.9 MG/DL (1.5-2.5)
[2016-11-01 07:33] LABS: ALT (GPT) 20 U/L (12-78); AST (GOT) 27 U/L (15-37); GLOMERULAR FILTRATION RATE 99 ML/MIN (>89)
[2016-11-01 07:35] LABS: TOTAL BILIRUBIN ADULT 0.3 MG/DL (0.2-1.0)
[2016-11-01 07:36] LABS: ALKALINE PHOSPHATASE 40 U/L (45-117)
[2016-11-01] MEDS: PANTOPRAZOLE SOD 40 MG DELAYED RELEASE TAB PO SCH (08:26)
[2016-11-01] MEDS: HEPARIN SODIUM - SQ 10,000 UNITS/ML VIAL SQ SCH (08:27)
[2016-11-01] MEDS: DOCUSATE SODIUM 100 MG CAP PO SCH (08:38)
[2016-11-01] MEDS ORDERED: ASPIRIN EC 81 MG TABEC PO SCH (09:00)
[2016-11-01] MEDS ORDERED: THIAMINE HCL 100 MG TAB PO SCH (09:00)
[2016-11-01] MEDS ORDERED: FOLIC ACID 1 MG TAB PO SCH (09:00)
[2016-11-01] MEDS: RESP: ALBUTEROL 2.5 MG/IPRATROPIUM 0.5 MG NEB (SCH) NEB (09:13)
[2016-11-01] MEDS ORDERED: POTASSIUM CHLORIDE 10 MEQ CONTROLLED RELEASE TAB PO ONE (09:30)
[2016-11-01] MEDS ORDERED: ASPI81TA11 PO (10:02)
[2016-11-01] MEDS ORDERED: METO25TA3 PO (10:02)
[2016-11-01] MEDS ORDERED: LISI-519 PO (10:02)
[2016-11-01] MEDS ORDERED: FOLI1TAB4 PO (10:02)
[2016-11-01] MEDS ORDERED: VITA100T2 PO (10:02)
--- NOTE | 2016-11-01 10:04 | HHI.FF ---
Face to Face Verification Diagnosis: (1) Alcohol withdrawal delirium (2) HTN (hypertension) (3) Encephalopathy acute (4) Weakness Physical Therapy Order: Improve ambulation, Strength and gait training Home Health Nursing Order: Medical education Nursing assessment with vital signs I have seen patient Prabhu To on 11/01/16. My clinical findings support the need for the requested home health care services because: Deconditioned w/ increased weakness Need for psychosocial assistance High risk of falls I certify that my clinical findings support that this patient is homebound because: Unsteady gait/balance Unsafe to leave home unassisted Need for psychosocial assistance Unable to use public transportation Marco Antonio Lucio MD November 01, 2016 10:04
--- NOTE | 2016-11-01 10:15 | HHI.FF ---
Face to Face Verification Diagnosis: (1) Alcohol withdrawal (2) Hyponatremia (3) CAD (coronary artery disease) (4) Hypokalemia (5) Alcohol withdrawal delirium (6) Anemia (7) CAD (coronary artery disease) (8) Respiratory distress (9) Hyponatremia (10) Weakness (11) Thrombocytosis (12) HTN (hypertension) (13) Encephalopathy acute (14) Dysphagia Physical Therapy Order: Improve ambulation, Strength and gait training Occupational Therapy Order: Evaluate and Treat, Improve ADL, Gross motor coordination Speech Therapy Order: To Improve: Cognitive skills, Swallowing Home Health Nursing Order: Medical education Nursing assessment with vital signs I have seen patient Prabhu To on 11/01/16. My clinical findings support the need for the requested home health care services because: Deconditioned w/ increased weakness Limited ability to care for self Need for psychosocial assistance High risk of falls I certify that my clinical findings support that this patient is homebound because: Unsteady gait/balance Unsafe to leave home unassisted Need for psychosocial assistance Unable to use public transportation Marco Antonio Lucio MD November 01, 2016 10:15
--- NOTE | 2016-11-01 10:28 | HHI.DS ---
Discharge Summary Admission Date Oct 22, 2016 at 23:23 Discharge Date: November 01, 2016 Admitting Diagnosis tremors/alcohol withdrawal/severe hyponatremia (1) Alcohol withdrawal delirium ICD Code: F10.231 Diagnosis: Principal (2) Hyponatremia ICD Code: E87.1 Diagnosis: Principal (3) CAD (coronary artery disease) ICD Code: I25.10 Diagnosis: Secondary (4) Encephalopathy acute ICD Code: G93.40 Diagnosis: Principal (5) Respiratory distress ICD Code: R06.00 Diagnosis: Principal (6) HTN (hypertension) ICD Code: I10 Diagnosis: Principal (7) Hypokalemia ICD Code: E87.6 Diagnosis: Principal (8) Anemia ICD Code: D64.9 Diagnosis: Principal (9) Thrombocytosis ICD Code: D47.3 Diagnosis: Principal (10) Aspiration pneumonia ICD Code: J69.0 Diagnosis: Principal Procedures none Brief History - From Admission Mr. To is a pleasant 66 year old male with a long history of alcohol abuse, CAD, HTN who presents to the ED on 10/22/2016 due to nausea, vomiting, subjective fever for the last three days. Up until 3-4 days ago, he was drinking heavy - about 18 beers a day. In an intention to quit drinking, he stopped drinking but had half bottle of beer this morning. He has been feeling very weak and frequently falling. His ex-girlfriend checks on him daily and today when she called, patient had confused and somewhat delusional thoughts. He thought children were in the house when children left many years ago. At the time of this interview, for the most part, patient maintains coherent conversation. However, he sometimes is confused and ex-girlfriend notes this confusion. He denies any chest pain, shortness of breath. He denies any changes in bladder habit but reports diarrhea for the last few days as well. CBC/BMP: 11/01/16 0615 11/01/16 0615 Significant Findings Laboratory Tests Test 10/30/16 10/31/16 11/01/16 04:40 04:14 06:15 Red Blood Count 3.07 MIL/MM3 3.43 MIL/MM3 3.04 MIL/MM3 (4.50-5.90) (4.50-5.90) (4.50-5.90) Hemoglobin 11.0 GM/DL 12.1 GM/DL 11.1 GM/DL (13.0-17.0) (13.0-17.0) (13.0-17.0) Hematocrit 32.7 % 37.3 % 33.6 % (39.0-51.0) (39.0-51.0) (39.0-51.0) Mean Corpuscular Volume 106.5 FL 108.5 FL 110.3 FL (80.0-100.0) (80.0-100.0) (80.0-100.0) Mean Corpuscular Hemoglobin 35.8 PG 35.4 PG 36.5 PG (27.0-34.0) (27.0-34.0) (27.0-34.0) Potassium Level 3.2 MEQ/L 3.4 MEQ/L (3.5-5.1) (3.5-5.1) Platelet Count 560 TH/MM3 491 TH/MM3 (150-450) (150-450) Blood Urea Nitrogen 19 MG/DL (7-18) 19 MG/DL (7-18) Estimat Glomerular Filtration 78 ML/MIN (>89) Rate Monocytes (%) (Auto) 13.1 % (0.0-8.0) Monocytes # (Auto) 1.2 TH/MM3 (0-0.9) Alkaline Phosphatase 40 U/L (45-117) Total Protein 6.3 GM/DL (6.4-8.2) Albumin 2.8 GM/DL (3.4-5.0) Imaging Last Impressions Lower Extremity Ultrasound 10/29/16 0000 Signed Impressions: Service Date/Time: Saturday, October 29, 2016 17:29 - CONCLUSION: Normal examination. Mesfin Maldonado MD Brain MRI 10/27/16 0000 Signed Impressions: Service Date/Time: Thursday, October 27, 2016 12:15 - CONCLUSION: No acute intracranial findings Mesfin Maldonado MD Chest X-Ray 10/26/16 0000 Signed Impressions: Service Date/Time: Wednesday, October 26, 2016 09:28 - CONCLUSION: No acute cardiopulmonary disease identified. Jaden Corona MD Lung Scan-VQ Nuclear Medicine 10/25/16 0000 Signed Impressions: Service Date/Time: Tuesday, October 25, 2016 16:11 - CONCLUSION: Possible artifactual appearance of diminished perfusion to both lower lobes and may consider CT angiography to further characterize. Josh Henderson MD Head CT 10/25/16 0000 Signed Impressions: Service Date/Time: Tuesday, October 25, 2016 13:36 - CONCLUSION: No significant change has occurred. Valdo Bell MD PE at Discharge GENERAL: NAD, resting comfortably. SKIN: No rashes, ecchymoses or lesions. Warm and dry. HEAD: Atraumatic. Normocephalic. No temporal or scalp tenderness. EYES: Pupils equal round and reactive. Bilateral drainage noted. ENT: Nose without bleeding, purulent drainage or septal hematoma. Airway patent. NECK: Trachea midline. No lymphadenopathy. Supple, nontender, no meningeal signs. CARDIOVASCULAR: Regular rate and rhythm without murmurs, gallops, or rubs. No JVD. RESPIRATORY: Moderate rhonchi. GASTROINTESTINAL: Abdomen soft, non-tender, nondistended. No guarding. MUSCULOSKELETAL: Extremities without clubbing, cyanosis, or edema. NEUROLOGICAL: Awake and alert. Generalized weakness, 4/5 strength. PSYCH: Mood and affect appropriate. Pt update on day of discharge The patient denies chest pain or shortness of breath. Vital signs are stable with tachycardia having resolved. Patient denies visual or auditory hallucinations and tremors have subsided. Patient has been ambulating with a wheeled walker and PT has recommended physical therapy with home health therapy. The patient will also need occupational therapy and speech therapy as an outpatient. Hospital Course (1) Alcohol withdrawal delirium Treated with CIWA protocol and Precedex initially. Neurological status back to baseline Treated with thiamine and folic acid Advised to alcohol cessation. (2) Hyponatremia Patient with severe hyponatremia of 119 on presentation to hospital. Likely secondary to hypovolemic hyponatremia. Treated with IV fluids in the form of normal saline.\ BMP was monitored throughout hospital stay and sodium corrected. (3) CAD (coronary artery disease) Metoprolol and lisinopril were continued. She remained stable during hospitalization. Patient was started on low-dose aspirin prior to discharge. (4) Encephalopathy acute Due to alcohol withdrawal. Head CT and MRI unremarkable. Encephalopathy now resolved. Sedating medications held due to patient complaining of weakness. Continue to monitor neuro checks (5) Respiratory distress Patient had episode of tachypnea. Suspected respiratory compensation for metabolic acidosis. Chest x-ray unremarkable, VQ scan with questionable perfusion defect in the lower lobes. Unable to do CTA due to contrast allergy. Lower extremity ultrasound without DVT. Patient was placed on oxygen and DuoNeb therapy as needed. Status post treatment with IV Zosyn for aspiration pneumonia coverage to be discontinued on 11/01/16. Sputum cultures requested as per records Continue incentive spirometry. (6) HTN (hypertension) Blood pressure seems to be stable now. Blood pressure exacerbated and uncontrolled due to withdrawal. Continue metoprolol and lisinopril. (7) Hypokalemia Likely due to nutritional deficiency. Potassium now within normal range at 3.5. Continue to monitor BMP and replace potassium orally as needed. (8) Anemia High MCV anemia. B12 within normal range. Hemoglobin stable. Some melenic acid requested and pending on the day of discharge. Patient was treated with IV Thiamine, oral folic acid. Will discharge on oral thiamine and folic acid. (9) Thrombocytosis Likely reactive. continue to monitor platelets. Platelets trending down from 560-491 on day of discharge. Gi prophylaxis: Patient placed on a PPI. DVT Prophylaxis: Patient placed on SCDs. Pt Condition on Discharge: Stable Discharge Disposition: Disch w/ Home Health Serv Discharge Time: > 30 minutes Discharge Instructions DIET: Follow Instructions for: Heart Healthy Diet Speech Therapy-Diet Recommends: Mechanical Soft, Chopped Meat w/Gravy Activities you can perform: See Additionl Instruction Other Activity Instructions: ambulate with walker Follow up Referrals: PCP Follow-up - 1 Week New Medications: Aspirin DR (Aspirin EC) 81 Mg Tabdr 81 MG PO DAILY cad #30 TAB Folic Acid (Folate) 1 Mg Tab 1 MG PO DAILY Alcohol Detox #30 TAB Lisinopril (Lisinopril) 5 Mg Tab 2.5 MG PO DAILY Blood Pressure Management #31 TAB Metoprolol Tartrate (Metoprolol Tartrate) 25 Mg Tab 25 MG PO DAILY Blood Pressure Management #31 TAB Thiamine (Vitamin B-1) 100 Mg Tab 100 MG PO DAILY Alcohol Detox #31 TAB Continued Medications: Hydrocodone-Acetaminophen (Lortab) 5-325 Mg Tab 1 TAB PO Q6H PRN PAIN Ref 0 TAB Discontinued Medications: Lisinopril (Lisinopril) 2.5 Mg Tab 2.5 MG PO DAILY #30 Ref 0 TAB Metoprolol Tartrate (Metoprolol Tartrate) 25 Mg Tab 25 MG PO DAILY #30 Ref 0 TAB Marco Antonio Lucio MD November 01, 2016 10:28
--- NOTE | 2016-11-01 11:10 | HHI.PR ---
Subjective Remarks no major overnight events heart rate improved tremors improving denies visual or auditory hallucinations vital signs stable Objective Vitals Vital Signs Date Time Temp Pulse Resp B/P Pulse Ox O2 Delivery O2 Flow Rate FiO2 11/01/16 09:33 15 11/01/16 09:14 99 21 11/01/16 08:00 80 11/01/16 08:00 97.7 80 23 125/81 97 11/01/16 04:00 76 11/01/16 04:00 98.8 84 25 119/71 95 11/01/16 00:33 98.8 88 27 163/75 94 11/01/16 00:00 80 10/31/16 20:18 104 10/31/16 20:00 97.8 92 21 146/73 93 10/31/16 19:35 99 21 10/31/16 16:00 98.6 84 20 98/59 10/31/16 16:00 84 10/31/16 12:00 98.0 82 19 101/53 I/O 10/31/16 10/31/16 10/31/16 11/01/16 11/01/16 11/01/16 07:00 15:00 23:00 07:00 15:00 23:00 Intake Total 100 ml 800 ml 365 ml 350 ml Output Total 350 ml 200 ml 50 ml 125 ml Balance -250 ml 600 ml 315 ml 225 ml Intake Oral 600 ml 240 ml 240 ml IV Total 100 ml 200 ml 125 ml 110 ml Output Urine Total 350 ml 200 ml 50 ml 125 ml # Bowel Movements 1 1 0 Result Diagram: 11/01/16 0615 11/01/16 0615 Imaging Last Impressions Lower Extremity Ultrasound 10/29/16 0000 Signed Impressions: Service Date/Time: Saturday, October 29, 2016 17:29 - CONCLUSION: Normal examination. Mesfin Maldonado MD Brain MRI 10/27/16 0000 Signed Impressions: Service Date/Time: Thursday, October 27, 2016 12:15 - CONCLUSION: No acute intracranial findings Mesfin Maldonado MD Chest X-Ray 10/26/16 0000 Signed Impressions: Service Date/Time: Wednesday, October 26, 2016 09:28 - CONCLUSION: No acute cardiopulmonary disease identified. Jaden Corona MD Lung Scan- Nuclear Medicine 10/25/16 0000 Signed Impressions: Service Date/Time: Tuesday, October 25, 2016 16:11 - CONCLUSION: Possible artifactual appearance of diminished perfusion to both lower lobes and may consider CT angiography to further characterize. Josh Henderson MD Head CT 10/25/16 0000 Signed Impressions: Service Date/Time: Tuesday, October 25, 2016 13:36 - CONCLUSION: No significant change has occurred. Valdo Bell MD Objective Remarks GENERAL: NAD, resting comfortably. SKIN: No rashes, ecchymoses or lesions. Warm and dry. HEAD: Atraumatic. Normocephalic. No temporal or scalp tenderness. EYES: Pupils equal round and reactive. Bilateral drainage noted. ENT: Nose without bleeding, purulent drainage or septal hematoma. Airway patent. NECK: Trachea midline. No lymphadenopathy. Supple, nontender, no meningeal signs. CARDIOVASCULAR: Regular rate and rhythm without murmurs, gallops, or rubs. No JVD. RESPIRATORY: Moderate rhonchi. GASTROINTESTINAL: Abdomen soft, non-tender, nondistended. No guarding. MUSCULOSKELETAL: Extremities without clubbing, cyanosis, or edema. NEUROLOGICAL: Awake and alert. Generalized weakness, 4/5 strength. PSYCH: Mood and affect appropriate. Procedures none Medications and IVs Current Medications Medications (Trade) Dose Ordered Sig/Lavelle Route Start Time Stop Time Status Last Admin (Romazicon Inj) 0.2 mg Q1M PRN IV PUSH 10/22/16 13:45 (Tylenol) 650 mg Q4H PRN PO 10/22/16 13:45 (Zofran Inj) 4 mg Q6H PRN IV 10/22/16 13:45 (Milk Of Magnesia Liq) 30 ml DAILY PRN PO 10/22/16 13:45 (Mag-Al Plus Susp Liq) 30 ml Q6H PRN PO 10/22/16 13:45 (Tums Chew) 1,000 mg TID PRN CHEW 10/22/16 13:45 (Lopressor) 25 mg DAILY PO 10/22/16 14:00 Hold 10/24/16 09:28 (Prinivil) 2.5 mg DAILY PO 10/23/16 09:00 Hold 10/24/16 09:28 (Vasotec Inj) 1.25 mg Q6H PRN IV 10/22/16 14:00 10/25/16 15:15 (Catapres) 0.1 mg Q6H PRN PO 10/22/16 14:00 10/28/16 20:15 (Pill Splitter) 1 ea UNSCH PRN OTHER 10/22/16 14:00 ([place] 5-325 Mg) 1 tab Q6H PRN PO 10/22/16 14:45 11/01/16 08:33 Miscellaneous Information Patient in critical care unit? Ass... [id number] .XX 10/22/16 23:15 10/22/16 23:15 (Heparin Inj) 5,000 units Q12HR SQ 10/23/16 09:00 11/01/16 08:27 (Ativan Inj) 2 mg Q2H PRN IV PUSH 10/25/16 11:30 Hydralazine HCl 10 mg 10 mg Q4H PRN IV PUSH 10/25/16 16:30 (Zosyn 4.5 Gm Premix) 100 ml @ 200 mls/hr Q6H IV 10/26/16 10:00 11/01/16 04:32 (Haldol Inj) 2 mg Q4H PRN IM 10/26/16 17:30 10/27/16 11:31 (Colace) 100 mg BID PO 10/30/16 13:00 11/01/16 08:38 (Folate) 1 mg DAILY PO 11/01/16 09:00 11/01/16 08:26 (Ecotrin Ec) 81 mg DAILY PO 11/01/16 09:00 11/01/16 08:26 (Protonix) 40 mg DAILY PO 10/31/16 17:00 11/01/16 08:26 (Vitamin B1) 100 mg DAILY PO 11/01/16 09:00 11/01/16 08:26 Urinary Catheter: No Vascular Central Line Catheter: No A/P Problem List: (1) Alcohol withdrawal delirium ICD Code: F10.231 Status: Acute Plan: Alcohol withdrawal much improved and almost resolved. Treated with CIWA protocol and Precedex initially. Neurological status back to baseline Continue thiamine and folic acid Advised to alcohol cessation. Ativan as needed for seizures. (2) Hyponatremia ICD Code: E87.1 Status: Resolved Plan: Patient with severe hyponatremia of 119 on presentation to hospital. Likely secondary to hypovolemic hyponatremia. Treated with IV fluids. Sodium levels now much improved. (3) CAD (coronary artery disease) ICD Code: I25.10 Status: Chronic Plan: Seems to be stable. Continue lisinopril, metoprolol. I will start patient on aspirin (4) Encephalopathy acute ICD Code: G93.40 Status: Resolved Plan: Due to alcohol withdrawal. Head CT and MRI unremarkable. Encephalopathy now resolved. Sedating medications held due to patient complaining of weakness. Continue to monitor neuro checks (5) Respiratory distress ICD Code: R06.00 Status: Resolved Plan: Patient had episode of tachypnea. Suspect respiratory compensation for metabolic acidosis. Chest x-ray M unremarkable, VQ scan with questionable perfusion defect in the lower lobes. Unable to do CTA due to contrast allergy. The post ultrasound of those remedies without DVT. History status stable now. Continue oxygen and DuoNeb as needed. Status post treatment with IV Zosyn for aspiration pneumonia coverage to be discontinued on 11/01/16. Sputum cultures requested as per records Continue incentive spirometry. (6) HTN (hypertension) ICD Code: I10 Status: Chronic Plan: Blood pressure seems to be stable now. Blood pressure exacerbated and uncontrolled due to withdrawal. Continue metoprolol and lisinopril. (7) Hypokalemia ICD Code: E87.6 Status: Resolved Plan: Likely due to nutritional deficiency. Continue to monitor and replace orally as needed. (8) Anemia ICD Code: D64.9 Status: Chronic Plan: High MCV anemia. B12 within normal range. Hemoglobin stable. Check methylmalonic acid and folate. Continue oral thiamine and folic acid. (9) Thrombocytosis ICD Code: D47.3 Status: Acute Plan: Likely reactive. continue to monitor platelets. (10) Aspiration pneumonia ICD Code: J69.0 Status: Acute Plan: sp treatment with IV Zosyn. Assessment and Plan Gi prophylaxis: I will place on a PPI DVT Prophylaxis: SCD's Problem Qualifiers (1) HTN (hypertension): Qualified Code: I10 - Essential hypertension (2) Anemia: Qualified Code: D64.9 - Anemia, unspecified type Marco Antonio Lucio MD November 01, 2016 11:10
== END 2016-11-01 14:24 | disposition home health service (06) | DRG 896 ==
LOC: NEPE 11:01 → NEDA 13:30 → INTOOBSV 13:30 → NEDH 13:59 → PHICU 21:00 → OBSVTOIN 23:23
PROVIDERS: ADMIT Hospitalist; ATTEND Hospitalist
DX: F10.231 Alcohol dependence with withdrawal delirium (principal); G93.41 Metabolic encephalopathy; J69.0 Pneumonitis due to inhalation of food and vomit; E44.0 Moderate protein-calorie malnutrition; E87.1 Hypo-osmolality and hyponatremia; E87.2 Acidosis; Z68.1 Body mass index [BMI] 19.9 or less, adult; I10 Essential (primary) hypertension; I25.10 Atherosclerotic heart disease of native coronary artery without angina pectoris; R53.1 Weakness; D53.9 Nutritional anemia, unspecified; E87.6 Hypokalemia; F17.210 Nicotine dependence, cigarettes, uncomplicated; R29.6 Repeated falls; D47.3 Essential (hemorrhagic) thrombocythemia; E86.9 Volume depletion, unspecified; D75.89 Other specified diseases of blood and blood-forming organs; Z95.5 Presence of coronary angioplasty implant and graft; Z91.041 Radiographic dye allergy status
CPT/HCPCS: 36600; 70450; 70551; 71010; 78582; 80048; 80053; 80076; 80307; 81001; 82140; 82436; 82550; 82552; 82570; 82607; 82805; 82948; 83605; 83735; 83921; 83930; 83935; 84100; 84295; 84300; 84443; 85025; 85027; 85610; 85730; 87641; 93005; 93970; 94620; 94640; 94664; 96361; 96374; 96375; A9540; A9567; J1630; J1644; J1940; J2060; J2543; J3411; J3475; J3480; J7030; J7070

== ENCOUNTER 2016-11-11 11:24 | Emergency (ER) | payer OTHER ==
[~2016-11-11] VITALS: Ht 162.6 cm; Wt 52.0 kg
[~2016-11-11 11:24] MED LIST changes: +ASPI81TA11 PO; -DILT180C56 PO; +FOLI1TAB4 PO; +HYDR-3533 PO; -HYDR-3535 PO; +LISI-519 PO; +METO25TA3 PO; -RIVA20 PO; +VITA100T2 PO
[2016-11-11 11:26] VITALS: BP 120/74; PULSE 99; RESP 18; TEMP 98.8; O2SAT 97
--- NOTE | 2016-11-11 11:31 | PD ---
Physical Exam Time Seen by Provider: 11:30 Narrative 66 y/o male fell yesterday in his driveway. He says his legs became weak. Here with neck/right arm pain. Vital signs reviewed. Seen at triage desk. Awaiting bed placement. Data Data Last Documented VS Vital Signs Date Time Temp Pulse Resp B/P Pulse Ox O2 Delivery O2 Flow Rate FiO2 11/11/16 11:26 98.8 99 18 120/74 97 Room Air [facility] Medical Record Reviewed: Yes Supervised Visit with LYN: Napoleon Costello November 11, 2016 11:31
[2016-11-11] MEDS ORDERED: SODIUM CHLOR 0.9% 1000 ML INJ 1,000 ML IV ONE (12:18)
[2016-11-11] MEDS ORDERED: TIZA4TAB PO (12:26)
[2016-11-11] MEDS ORDERED: LORazepam 0.5 MG TAB PO ONE (12:30)
[2016-11-11] MEDS ORDERED: SODIUM CHLORIDE 0.9% FLUSH 10 ML FLUSH IVF PRN (12:30)
[2016-11-11 12:40] LABS: AUTOMATED NEUTROPHIL # 7.6 TH/MM3 (1.8-7.7); BASOPHIL # 0.1 TH/MM3 (0-0.2); BASOPHIL % 1.2 % (0.0-2.0); EOSINOPHIL # 0.1 TH/MM3 (0-0.4); EOSINOPHIL % 1.3 % (0.0-4.0); HEMO FLAGS DIFF FINAL; LYMPH % 10.5 % (9.0-44.0); MEAN CELL VOLUME 104.1 FL (80.0-100.0); MEAN CORPUSCULAR HEMOGLOBIN 37.1 PG (27.0-34.0); MEAN CORPUSCULAR HGB CONC 35.7 % (32.0-36.0); MONO % 8.2 % (0.0-8.0); NEUT % 78.8 % (16.0-70.0); PLATELET COUNT 556 TH/MM3 (150-450); RED BLOOD COUNT 3.36 MIL/MM3 (4.50-5.90); RED CELL DISTRIBUTION WIDTH 14.4 % (11.6-17.2); WHITE BLOOD COUNT 9.6 TH/MM3 (4.0-11.0)
[2016-11-11 12:44] VITALS: O2SAT 99
[2016-11-11 12:52] LABS: APTT (PATIENT) 28.2 SEC (24.3-30.1); PROTHROMBIN TIME - PATIENT 10.5 SEC (9.8-11.6)
--- NOTE | 2016-11-11 12:59 | RADRPT ---
EXAM DATE/TIME: 11/11/2016 12:46 [place] COMPARISON: CHEST SINGLE AP, October 26, 2016, 9:28. INDICATIONS : Shortness of breath, patient fell yesterday. MEDICAL HISTORY : None. SURGICAL HISTORY : Heart Stents. ENCOUNTER: Initial ACUITY: 2 days PAIN SCORE: 0/10 LOCATION: Bilateral chest FINDINGS: A single view of the chest demonstrates the lungs to be symmetrically aerated without evidence of mas s, infiltrate or effusion. The cardiomediastinal contours are unremarkable. Osseous structures are intact. CONCLUSION: No acute disease. Lance Chen MD on November 11, 2016 at 12:56 Board Certified Radiologist. This report was verified electronically.
[2016-11-11 13:08] LABS: ALKALINE PHOSPHATASE 60 U/L (45-117); ALT (GPT) 30 U/L (12-78); ANION GAP 10 MEQ/L (5-15); AST (GOT) 47 U/L (15-37); BICARBONATE 25.8 MEQ/L (21.0-32.0); BLOOD UREA NITROGEN 12 MG/DL (7-18); CHLORIDE 92 MEQ/L (98-107); GLOMERULAR FILTRATION RATE 141 ML/MIN (>89); POTASSIUM 4.3 MEQ/L (3.5-5.1); SODIUM (NA) 128 MEQ/L (136-145); TOTAL BILIRUBIN ADULT 0.3 MG/DL (0.2-1.0)
[2016-11-11 13:12] LABS: CREATINE KINASE 81 U/L (39-308)
--- NOTE | 2016-11-11 13:13 | PD ---
HPI Chief Complaint: Syncope/Near-Syncope Time Seen by Provider: 12:05 Travel History International Travel<30 days: No Contact w/Intl Traveler<30days: No Traveled to known affect area: No History of Present Illness HPI 66-year-old male presents to the ED for evaluation of posterior neck and right wrist and shoulder pain after syncopal episode 2 days ago. The patient states that he was standing in the driveway with his neighbors using his walker. He states he leaned over to talk to the patient's young daughter and "woke up on the ground.' He is unsure if he hit his head or loss consciousness. He states that his neighbor helped him into the house. He states he has been ambulatory since the accident. On presentation he complains of 10/10 posterior neck pain , worsened with range of motion. Complains of "numbness" in the wrist and inability to raise the shoulder over his head. He denies headache, vision changes, numbness, tingling, weakness of the extremities, chest pain, palpitations, shortness of breath, abdominal pain, nausea, vomiting, changes in bowel habits, dysuria. Patient states he was discharged from the hospital 10 days ago, physical therapy is coming to the house to help with weakness and deconditioning. PFSH Past Medical History Asthma: Yes Blood Disorders: No Heart Rhythm Problems: Yes Cancer: No Cardiovascular Problems: Yes (atrial fib) High Cholesterol: No Chemotherapy: Yes Chest Pain: Yes Congestive Heart Failure: No Cirrhosis: Yes COPD: Yes Diabetes: No Diminished Hearing: No Diverticulitis: Yes Endocrine: No Gastrointestinal Disorders: Yes (FATTY LIVER) Genitourinary: No Hepatitis: Yes (C) Hiatal Hernia: Yes Hypertension: Yes Immune Disorder: No Implanted Vascular Access Dvce: Yes Musculoskeletal: Yes (arthritis legs) Neurologic: No Respiratory: Yes Migraines: Yes Radiation Therapy: No Seizures: Yes Sleep Apnea: Yes Thyroid Disease: No Past Surgical History Body Medical Devices: rt leg bolts and screws micaela. broken jaw Genitourinary Surgery: Yes (HEMMRHIODS) Tonsillectomy: Yes Other Surgery: Yes (hemmhorroidectomy) Social History Alcohol Use: Yes (stopped drinking x 1 month ago s/p hospital admission) Tobacco Use: Yes Substance Use: No Allergies-Medications (Allergen,Severity, Reaction): Coded Allergies: Contrast Media (Verified Allergy, Severe, 11/11/16) Reported Meds & Prescriptions Reported Meds & Active Scripts Active Metoprolol Tartrate 25 Mg Tab 25 Mg PO DAILY Lisinopril 5 Mg Tab 2.5 Mg PO DAILY Aspirin EC (Aspirin) 81 Mg Tabdr 81 Mg PO DAILY Reported Tizanidine (Tizanidine HCl) 4 Mg Tab 4 Mg PO TID Review of Systems Except as stated in HPI: all other systems reviewed are Neg Physical Exam Narrative GENERAL: Well-nourished, well-developed alert white male, wearing a soft collar , in no acute distress. SKIN: Warm and dry. A thorough exam of the skin reveals no erythema, abrasion, laceration, or ecchymosis. HEAD: Normocephalic. Atraumatic. No bony step-offs. No randall sign. No raccoon eyes. EYES: No scleral icterus. No injection or drainage. PERRLA. EOMI. ENT: Pearly clark tympanic membranes bilaterally. No hemotympanum. Nasal mucosa is moist. Oropharynx without erythema, edema or exudate. NECK: Supple, trachea midline. No JVD or lymphadenopathy. No midline tenderness to palpation. The patient retains full, active, range of motion of the neck though this elicits pains. CARDIOVASCULAR: Regular rate and rhythm without murmurs, gallops, or rubs. 2+ DP and radial pulses bilaterally. RESPIRATORY: Breath sounds clear and equal bilaterally. No accessory muscle use. GASTROINTESTINAL: Abdomen soft, non-tender, nondistended. + Bowel sounds MUSCULOSKELETAL: No cyanosis, or edema. No TPP of the right shoulder. Patient is unable to abduct beyond 90. Full, active range of motion, strength 5/5, neurovascularly intact in the remaining extremities. NEUROLOGICAL: Awake and alert. Cranial nerves II through XII intact. Motor and sensory grossly within normal limits. Normal speech. No pronator drift. No ataxia. BACK: Nontender without obvious deformity. No CVA tenderness. No midline tenderness to palpation. Data Data Last Documented VS Vital Signs Date Time Temp Pulse Resp B/P Pulse Ox O2 Delivery O2 Flow Rate FiO2 11/11/16 12:44 99 Room Air 11/11/16 12:02 16 11/11/16 11:26 98.8 99 120/74 Orders Electrocardiogram (11/11/16 12:18) Complete Blood Count With Diff (11/11/16 12:18) Comprehensive Metabolic Panel (11/11/16 12:18) Magnesium (Mg) (11/11/16 12:18) Ckmb (Isoenzyme) Profile (11/11/16 12:18) Troponin I (11/11/16:18) Act Partial Throm Time (Ptt) (11/11/16:18) Prothrombin Time / Inr (Pt) (11/11/16 12:18) Urinalysis - C+S If Indicated (11/11/16 12:18) Chest, Single Ap (11/11/16 12:18) Ct Brain W/O Iv Contrast(Rout) (11/11/16 12:18) Ecg Monitoring (11/11/16:18) Iv Access Insert/Monitor (11/11/16:18) Oximetry (11/11/16 12:18) Sodium Chloride 0.9% Flush (Ns Flush) (11/11/16 12:30) Sodium Chlor 0.9% 1000 Ml Inj (Ns 1000 M (11/11/16 12:18) Wrist, Complete ([id number]) (11/11/16 12:18) Lorazepam (Ativan) (11/11/16 12:30) Acetamin-Hydrocod 325-10 Mg ([place] 10-32 (11/11/16 14:15) Labs Laboratory Tests Test 11/11/16 11/11/16 12:27 13:30 White Blood Count 9.6 TH/MM3 Red Blood Count 3.36 MIL/MM3 Hemoglobin 12.5 GM/DL Hematocrit 35.0 % Mean Corpuscular Volume 104.1 FL Mean Corpuscular Hemoglobin 37.1 PG Mean Corpuscular Hemoglobin 35.7 % Concent Red Cell Distribution Width 14.4 % Platelet Count 556 TH/MM3 Mean Platelet Volume 7.4 FL Neutrophils (%) (Auto) 78.8 % Lymphocytes (%) (Auto) 10.5 % Monocytes (%) (Auto) 8.2 % Eosinophils (%) (Auto) 1.3 % Basophils (%) (Auto) 1.2 % Neutrophils # (Auto) 7.6 TH/MM3 Lymphocytes # (Auto) 1.0 TH/MM3 Monocytes # (Auto) 0.8 TH/MM3 Eosinophils # (Auto) 0.1 TH/MM3 Basophils # (Auto) 0.1 TH/MM3 CBC Comment DIFF FINAL Differential Comment Prothrombin Time 10.5 SEC Prothromb Time International 1.0 RATIO Ratio Activated Partial 28.2 SEC Thromboplast Time Sodium Level 128 MEQ/L Potassium Level 4.3 MEQ/L Chloride Level 92 MEQ/L Carbon Dioxide Level 25.8 MEQ/L Anion Gap 10 MEQ/L Blood Urea Nitrogen 12 MG/DL Creatinine 0.58 MG/DL Estimat Glomerular Filtration 141 ML/MIN Rate Random Glucose 84 MG/DL Calcium Level 9.1 MG/DL Magnesium Level 2.0 MG/DL Total Bilirubin 0.3 MG/DL Aspartate Amino Transf 47 U/L (AST/SGOT) Alanine Aminotransferase 30 U/L (ALT/SGPT) Alkaline Phosphatase 60 U/L Total Creatine Kinase 81 U/L Troponin I LESS THAN 0.02 NG/ML Total Protein 6.9 GM/DL Albumin 3.0 GM/DL Urine Color LIGHT-YELLOW Urine Turbidity CLEAR Urine pH 7.0 Urine Specific [place] 1.005 Urine Protein NEG mg/dL Urine Glucose (UA) NEG mg/dL Urine Ketones NEG mg/dL Urine Occult Blood NEG Urine Nitrite NEG Urine Bilirubin NEG Urine Urobilinogen LESS THAN 2.0 MG/DL Urine Leukocyte Esterase NEG Urine RBC LESS THAN 1 /hpf Urine WBC 4 /hpf Urine Squamous Epithelial <1 /hpf Cells Microscopic Urinalysis Comment CULT NOT INDICATED MDM Medical Decision Making Medical Screen Exam Complete: Yes Emergency Medical Condition: Yes Interpretation(s) EKG rate 60, sinus rhythm, KS interval 122, QRS 82, QTc 389. Normal axis. No ST elevations or depressions. Reviewed by Dr. Kang. Differential Diagnosis Musculoskeletal pain versus rotator cuff injury versus cervical fracture versus subluxation versus ACS versus arrhythmia versus electrolyte abnormality versus anemia versus deconditioning versus other Narrative Course 66-year-old male presents to the ED for evaluation of posterior neck and right wrist and shoulder pain after syncopal episode 2 days ago. The patient states that he was standing in the driveway with his neighbors using his walker. He states he leaned over to talk to the patient's young daughter and "woke up on the ground.' He is unsure if he hit his head or loss consciousness. He states he has been ambulatory since the accident. On presentation he complains of 10/ 10 posterior neck pain, worsened with range of motion. Complains of "numbness" in the wrist and inability to raise the shoulder over his head. He denies headache, vision changes, numbness, tingling, weakness of the extremities, chest pain, palpitations, shortness of breath, abdominal pain, nausea, vomiting , changes in bowel habits, dysuria. Vitals reviewed. No midline tenderness of the posterior neck, need for imaging ruled out by [place] CT rules. No tenderness to palpation of the shoulder, patient is unable to abduct beyond 90 . I have low suspicion for bony injury, suspect rotator cuff injury. IV was established. Patient was paced on continuous monitoring. He was administered 10 mg [place] by mouth. Patient states he is anxious about the CT, was administered 0.5 mg Ativan IV. CBC: No leukocytosis or anemia. INR 1.0. CMP: Sodium 128, chloride 92, BUN 12, creatinine 0.58, AST 47, ALT 30 UA: No culture indicated. Cardiac enzymes negative 1. Chest x-ray: No acute disease per radiology read. CT of the head cerebral atrophy, no acute intracranial disease per radiology read. EKG as above. I discussed the patient with Dr. Kang. This is musculoskeletal pain after mechanical fall. Patient's instructed to return to normal, gentle activity as tolerated, continue taking his daily medications, follow-up with his primary care provider. He indicated understanding of instructions and is agreeable to a care plan. The patient is stable and discharged home. Diagnosis Primary Impression: Near syncope Additional Impressions: Musculoskeletal neck pain Internal derangement of right shoulder Hyponatremia Referrals: Primary Care Physician Patient Instructions: General Instructions, Musculoskeletal Pain (ED) Additional Instructions: Rest, hydrate. Resume normal, gentle activities as tolerated. No strenuous physical activities for the next few days Continue with your prescribed pain medications as needed. Applying ice or heat to areas with sore muscles may help to improve your pain. Do not apply ice/ heat for longer than 20 m/h. Follow-up with your primary care provider this week. Return to the ED for any urgent or emergent medical condition. Disposition: 01 DISCHARGE HOME Condition: Stable Marya Betancur November 11, 2016 13:13
--- NOTE | 2016-11-11 13:17 | RADRPT ---
EXAM DATE/TIME: 11/11/2016 12:59 [facility] COMPARISON: CT BRAIN W/O CONTRAST, October 25, 2016, 13:36. INDICATIONS : Patient fell yesterday, neck and right shoulder pain. RADIATION DOSE: 56.35 CTDIvol (mGy) MEDICAL HISTORY : Cardiovascular disease. Hypertension. Hepatitis C.cirrohsis SURGICAL HISTORY : None. ENCOUNTER: Initial ACUITY: 1 day PAIN SCALE: 4/10 LOCATION: Bilateral cranial TECHNIQUE: Multiple contiguous axial images were obtained of the head. Using automated exposure control and adj ustment of the mA and/or kV according to patient size, radiation dose was kept as low as reasonably a chievable to obtain optimal diagnostic quality images. FINDINGS: CEREBRUM: Cerebral atrophy. The ventricles are normal for age. No evidence of midline shift, mass lesion, hemo rrhage or acute infarction. No extra-axial fluid collections are seen. POSTERIOR FOSSA: The cerebellum and brainstem are intact. The 4th ventricle is midline. The cerebellopontine angle i s unremarkable. EXTRACRANIAL: The visualized portion of the orbits is intact. Right maxillary sinus disease. SKULL: The calvaria is intact. No evidence of skull fracture. CONCLUSION: Cerebral atrophy. No acute intracranial disease. Lance Chen MD on November 11, 2016 at 13:13 Board Certified Radiologist. This report was verified electronically.
[2016-11-11 13:45] LABS: BLOOD, URINE NEG (NEG); GLUCOSE,URINE NEG (NEG); KETONE, URINE NEG (NEG); NITRITE,URINE NEG (NEG); SQUAMOUS EPITHELIAL CELL URINE <1 /hpf (0-5); URINE COLOR LIGHT-YELLOW (YELLW/STRAW)
[2016-11-11 13:49] LABS: COMMENT (UR) CULT NOT INDICATED; CULTURE IF INDICATED CULT NOT INDICATED
[2016-11-11] MEDS ORDERED: ACETAMINOPHEN/HYDROcodone 325 MG/10 MG TAB PO ONE (14:15)
--- NOTE | 2016-11-11 14:27 | RADRPT ---
EXAM DATE/TIME: 11/11/2016 12:48 [facility] COMPARISON: No previous studies available for comparison. INDICATIONS : Right wrist pain after a fall yesterday, numb on medial side. MEDICAL HISTORY : None. SURGICAL HISTORY : Heart stents. ENCOUNTER: Initial ACUITY: 2 days PAIN SCORE: 6/10 LOCATION: Right Wrist. FINDINGS: Three view examination of the right wrist demonstrates no soft tissue swelling, dislocation, or fract ure. There is smooth periosteal thickening involving the distal radial diaphysis. No lucency. No cor tical destruction. No soft tissue component. The carpal bones are in normal alignment. The joint spa trent are maintained. Bony mineralization is normal. CONCLUSION: 1. Benign periosteal thickening involving the distal radius likely related to prior trauma. 2. No acute abnormality. Favio Ramon Jr., MD on November 11, 2016 at 14:23 Board Certified Radiologist. This report was verified electronically.
--- NOTE | 2016-11-11 14:28 | PD ---
Data Data Last Documented VS Vital Signs Date Time Temp Pulse Resp B/P Pulse Ox O2 Delivery O2 Flow Rate FiO2 11/11/16 12:44 99 Room Air 11/11/16 12:02 16 11/11/16 11:26 98.8 99 120/74 Orders Electrocardiogram (11/11/16 12:18) Complete Blood Count With Diff (11/11/16 12:18) Comprehensive Metabolic Panel (11/11/16 12:18) Magnesium (Mg) (11/11/16 12:18) Ckmb (Isoenzyme) Profile (11/11/16 12:18) Troponin I (11/11/16 12:18) Act Partial Throm Time (Ptt) (11/11/16 12:18) Prothrombin Time / Inr (Pt) (11/11/16 12:18) Urinalysis - C+S If Indicated (11/11/16 12:18) Chest, Single Ap (11/11/16 12:18) Ct Brain W/O Iv Contrast(Rout) (11/11/16 12:18) Ecg Monitoring (11/11/16 12:18) Iv Access Insert/Monitor (11/11/16 12:18) Oximetry (11/11/16 12:18) Sodium Chloride 0.9% Flush (Ns Flush) (11/11/16 12:30) Sodium Chlor 0.9% 1000 Ml Inj (Ns 1000 M (11/11/16 12:18) Wrist, Complete ([id number]) (11/11/16 12:18) Lorazepam (Ativan) (11/11/16 12:30) Acetamin-Hydrocod 325-10 Mg ([place] 10-32 (11/11/16 14:15) Labs Laboratory Tests Test 11/11/16 11/11/16 12:27 13:30 White Blood Count 9.6 TH/MM3 Red Blood Count 3.36 MIL/MM3 Hemoglobin 12.5 GM/DL Hematocrit 35.0 % Mean Corpuscular Volume 104.1 FL Mean Corpuscular Hemoglobin 37.1 PG Mean Corpuscular Hemoglobin 35.7 % Concent Red Cell Distribution Width 14.4 % Platelet Count 556 TH/MM3 Mean Platelet Volume 7.4 FL Neutrophils (%) (Auto) 78.8 % Lymphocytes (%) (Auto) 10.5 % Monocytes (%) (Auto) 8.2 % Eosinophils (%) (Auto) 1.3 % Basophils (%) (Auto) 1.2 % Neutrophils # (Auto) 7.6 TH/MM3 Lymphocytes # (Auto) 1.0 TH/MM3 Monocytes # (Auto) 0.8 TH/MM3 Eosinophils # (Auto) 0.1 TH/MM3 Basophils # (Auto) 0.1 TH/MM3 CBC Comment DIFF FINAL Differential Comment Prothrombin Time 10.5 SEC Prothromb Time International 1.0 RATIO Ratio Activated Partial 28.2 SEC Thromboplast Time Sodium Level 128 MEQ/L Potassium Level 4.3 MEQ/L Chloride Level 92 MEQ/L Carbon Dioxide Level 25.8 MEQ/L Anion Gap 10 MEQ/L Blood Urea Nitrogen 12 MG/DL Creatinine 0.58 MG/DL Estimat Glomerular Filtration 141 ML/MIN Rate Random Glucose 84 MG/DL Calcium Level 9.1 MG/DL Magnesium Level 2.0 MG/DL Total Bilirubin 0.3 MG/DL Aspartate Amino Transf 47 U/L (AST/SGOT) Alanine Aminotransferase 30 U/L (ALT/SGPT) Alkaline Phosphatase 60 U/L Total Creatine Kinase 81 U/L Troponin I LESS THAN 0.02 NG/ML Total Protein 6.9 GM/DL Albumin 3.0 GM/DL Urine Color LIGHT-YELLOW Urine Turbidity CLEAR Urine pH 7.0 Urine Specific [place] 1.005 Urine Protein NEG mg/dL Urine Glucose (UA) NEG mg/dL Urine Ketones NEG mg/dL Urine Occult Blood NEG Urine Nitrite NEG Urine Bilirubin NEG Urine Urobilinogen LESS THAN 2.0 MG/DL Urine Leukocyte Esterase NEG Urine RBC LESS THAN 1 /hpf Urine WBC 4 /hpf Urine Squamous Epithelial <1 /hpf Cells Microscopic Urinalysis Comment CULT NOT INDICATED [facility] Supervised Visit with LYN: Yes Narrative Course The history, exam, and medical decision-making in the associated mid-level provider note were completed with my assistance. I reviewed and agree with the findings presented. I attest that I had a [id number] encounter with the patient on the same day, and personally performed and documented my assessment and findings in the medical record. *My assessment and Findings: 66 old alcoholic male presents emergent department complaining of pain after a syncopal episode 2 days ago. Looks well. X-rays are negative. Recommend supportive treatment. No alcohol. Diagnosis Primary Impression: Near syncope Additional Impressions: Musculoskeletal neck pain Internal derangement of right shoulder Hyponatremia Referrals: Primary Care Physician Patient Instructions: General Instructions, Musculoskeletal Pain (ED) Additional Instruction: Rest, hydrate. Resume normal, gentle activities as tolerated. No strenuous physical activities for the next few days Continue with your prescribed pain medications as needed. Applying ice or heat to areas with sore muscles may help to improve your pain. Do not apply ice/ heat for longer than 20 m/h. Follow-up with your primary care provider this week. Return to the ED for any urgent or emergent medical condition. Disposition: 01 DISCHARGE HOME Condition: Stable Richard Kang MD November 11, 2016 14:28
--- NOTE | 2016-11-12 11:05 | EKG ---
Date Performed: 11/11/2016 Time Performed: 13:25:23 PTAGE: 66 years EKG: Sinus rhythm NORMAL ECG PREVIOUS TRACING : 10/22/2016 11.22 DOCTOR: Richard Milton Interpretating Date/Time 11/12/2016 11:04:04
== END 2016-11-11 15:24 | disposition home or self-care (01) ==
LOC: NEPD 11:24
DX: R55 Syncope and collapse (principal); M54.2 Cervicalgia; E87.1 Hypo-osmolality and hyponatremia; S49.91XA Unspecified injury of right shoulder and upper arm, initial encounter; W19.XXXA Unspecified fall, initial encounter; Y93.89 Activity, other specified; Y92.008 Other place in unspecified non-institutional (private) residence as the place of occurrence of the external cause
CPT/HCPCS: 70450; 71010; 73110; 80053; 81001; 82550; 83735; 84484; 85025; 85610; 85730; 93005; 96360; 96361; 99284; J7030

== ENCOUNTER 2017-01-13 11:01 | Emergency (ER) | payer OTHER, MEDICAID ==
[~2017-01-13] VITALS: Ht 162.6 cm; Wt 55.0 kg
[~2017-01-13 11:01] MED LIST changes: -FOLI1TAB4 PO; -HYDR-3533 PO; +TIZA4TAB PO; -VITA100T2 PO
[2017-01-13 11:02] VITALS: BP 167/74; PULSE 66; RESP 16; TEMP 99; O2SAT 99
== END 2017-01-13 12:30 | disposition left against medical advice (07) ==
LOC: NED 11:01
DX: R10.9 Unspecified abdominal pain (principal); Z53.21 Procedure and treatment not carried out due to patient leaving prior to being seen by health care provider
CPT/HCPCS: 99281

== ENCOUNTER 2017-04-05 18:41 | Emergency (ER) | payer OTHER, MEDICAID ==
[~2017-04-05] VITALS: Ht 162.6 cm; Wt 60.0 kg
[2017-04-05 19:22] VITALS: BP 148/68; PULSE 96; RESP 18; TEMP 97.7; O2SAT 97
--- NOTE | 2017-04-05 20:23 | PD ---
HPI Chief Complaint: Alcohol/Drug Intoxication Time Seen by Provider: 20:17 Travel History International Travel<30 days: No Contact w/Intl Traveler<30days: No Traveled to known affect area: No History of Present Illness HPI 67-year-old male with history seizure disorder, hypertension, COPD, asthma, alcohol dependency, cirrhosis, presents to the emergency department for evaluation. Patient states that he has had too much to drink today. He was lying on the floor when [facility] came and got him. James's states he has fallen 3 times today so she called [facility]. Patient denies any known trauma. He denies pain. States that he would like to go home. PFSH Past Medical History Asthma: Yes Blood Disorders: No Heart Rhythm Problems: Yes Cancer: No Cardiovascular Problems: Yes High Cholesterol: No Chemotherapy: Yes Chest Pain: Yes Congestive Heart Failure: No Cirrhosis: Yes COPD: Yes Diabetes: No Diminished Hearing: No Diverticulitis: Yes Endocrine: No Gastrointestinal Disorders: Yes (FATTY LIVER) Genitourinary: No Hepatitis: Yes (C) Hiatal Hernia: Yes Hypertension: Yes Immune Disorder: No Implanted Vascular Access Dvce: Yes Musculoskeletal: Yes (arthritis legs) Neurologic: No Respiratory: Yes Migraines: Yes Radiation Therapy: No Seizures: Yes Sleep Apnea: Yes Thyroid Disease: No Tetanus Vaccination: Never Vaccinated Past Surgical History Body Medical Devices: rt leg bolts and screws micaela. broken jaw Genitourinary Surgery: Yes (HEMMRHIODS) Tonsillectomy: Yes Other Surgery: Yes (hemmhorroidectomy) Social History Alcohol Use: Yes (stopped drinking x 1 month ago s/p hospital admission) Tobacco Use: Yes Substance Use: No Allergies-Medications (Allergen,Severity, Reaction): Coded Allergies: diatrizoate meglumine (Unverified Allergy, Severe, 04/05/17) gadobenic acid (Unverified Allergy, Severe, 04/05/17) gadodiamide (Unverified Allergy, Severe, 04/05/17) gadoteridol (Unverified Allergy, Severe, 04/05/17) iodixanol (Unverified Allergy, Severe, 04/05/17) iohexol (Unverified Allergy, Severe, 04/05/17) Reported Meds & Prescriptions Reported Meds & Active Scripts Active Metoprolol Tartrate 25 Mg Tab 25 Mg PO DAILY Lisinopril 5 Mg Tab 2.5 Mg PO DAILY Aspirin EC (Aspirin) 81 Mg Tabdr 81 Mg PO DAILY Reported Tizanidine (Tizanidine HCl) 4 Mg Tab 4 Mg PO TID Review of Systems Except as stated in HPI: all other systems reviewed are Neg Physical Exam Narrative GENERAL: Well-nourished male patient, lying in bed, in no acute distress. She has ambulated to the bathroom and back. SKIN: Focused skin assessment warm/dry. Abrasion on the right elbow. HEAD: Atraumatic. Normocephalic. EYES: Pupils equal and round. No scleral icterus. No injection or drainage. ENT: No nasal bleeding or discharge. Mucous membranes pink and moist. NECK: Trachea midline. No JVD. CARDIOVASCULAR: Regular rate and rhythm. No murmur appreciated. RESPIRATORY: No accessory muscle use. Coarse to auscultation. Breath sounds equal bilaterally. GASTROINTESTINAL: Abdomen soft, non-tender, nondistended. Hepatic and splenic margins not palpable. MUSCULOSKELETAL: No obvious deformities. No clubbing. No cyanosis. No edema. Patient has full flexion extension of the right elbow. There is no deformity. No edema. NEUROLOGICAL: Awake and alert. No obvious cranial nerve deficits. Motor grossly within normal limits. Normal speech. Data Data Last Documented VS Vital Signs Date Time Temp Pulse Resp B/P (MAP) Pulse Ox O2 Delivery O2 Flow Rate FiO2 04/05/17 19:22 97.7 96 18 148/68 (94) 97 Room Air Orders Orders Ct Brain W/O Iv Contrast(Rout) (04/05/17 ) [facility] Medical Decision Making Medical Screen Exam Complete: Yes Emergency Medical Condition: Yes Medical Record Reviewed: Yes Differential Diagnosis Alcohol dependency versus occult stroke versus seizure versus minor head injury versus intracranial hemorrhage Narrative Course 67-year-old male presents to emergency department for evaluation. He was in the ambulance call and I am asked to come assess the patient as he is ambulatory and nursing staff feels he would be ready for discharge. I discussed with the patient and his why he is here today. He tells me that he has drank too much. Nursing staff informs me that he has fallen which is why she contacted police. CT imaging of the brain will be ordered. Pending no acute intracranial abnormality, patient will be discharged home. Diagnosis Primary Impression: Alcohol dependence Qualified Codes: F10.29 - Alcohol dependence with unspecified alcohol-induced disorder Additional Impressions: Frequent falls Elbow abrasion Qualified Codes: S50.311A - Abrasion of right elbow, initial encounter Referrals: [facility] (Out patient) [facility] Patient Instructions: Abuse of Alcohol (ED), General Instructions Additional Instructions: Stop drinking alcohol If you choose to continue drinking alcohol, consume it in moderation Follow-up with primary care provider Return immediately to the emergency department with any acute worsening of symptoms Med/Other Pt SpecificInfo: No Change to Meds Disposition: 01 DISCHARGE HOME Condition: Stable Zenia Campos Apr 05, 2017 20:23
--- NOTE | 2017-04-05 20:48 | RADRPT ---
EXAM DATE/TIME: 04/05/2017 20:33 [facility] COMPARISON: CT BRAIN W/O CONTRAST, November 11, 2016, 12:59. INDICATIONS : Patient fell today. ETOH. RADIATION DOSE: 32.58 CTDIvol (mGy) MEDICAL HISTORY : Seizures. Hypertension. Cirrhosis.Hep C SURGICAL HISTORY : None. ENCOUNTER: Initial ACUITY: 1 day PAIN SCALE: 0/10 LOCATION: cranial TECHNIQUE: Multiple contiguous axial images were obtained of the head. Using automated exposure control and adj ustment of the mA and/or kV according to patient size, radiation dose was kept as low as reasonably a chievable to obtain optimal diagnostic quality images. DICOM format image data is available electro nically for review and comparison. FINDINGS: There is atrophy, remote right frontal periventricular lacunar infarct and pontine lacunar infarct id entified. No signs of hemorrhage or mass. No fractures. CONCLUSION: No acute disease. Valdo Bell MD on April 05, 2017 at 20:47 Board Certified Radiologist. This report was verified electronically.
== END 2017-04-05 20:55 | disposition home or self-care (01) ==
LOC: NEDAMB 18:41
DX: F10.29 Alcohol dependence with unspecified alcohol-induced disorder (principal); S50.311A Abrasion of right elbow, initial encounter; J44.9 Chronic obstructive pulmonary disease, unspecified; I10 Essential (primary) hypertension; K74.60 Unspecified cirrhosis of liver; W19.XXXA Unspecified fall, initial encounter
CPT/HCPCS: 70450